=== PATIENT | male | born 1950 | race African-American/Black ===

== ENCOUNTER 2016-10-17 09:24 | Inpatient (IN) ==
--- NOTE | 2016-10-17 11:27 | History & Physical Report ---
Date of Encounter: 10/17/16 Time of Encounter: 11:27 24 Hour HP Update - Instructions Instructions: If the History and Physical is less than 30 days old and was completed prior to A.M. admission and or procedure and has NOT been updated on calendar day of procedure please complete this update prior to performing procedure. - Update Patient reports changes in Medical Condition: No Changes in examination, assessment, or condition: No Changes in Medication: No Preop tests/diagnostics Reviewed: Yes Surgery Remains Indicated: Yes Consent for Planned Operative Procedure(s) Verified: Yes - Pre-Operative Checklist Preoperative Checklist Indicated: No Prophylactic Antibiotic Ordered: Yes Is VTE Prophylaxis Indicated?: Yes
--- NOTE | 2016-10-17 11:30 | Discharge Summary ---
Date of Encounter: 10/21/16 Time of Encounter: 06:42 - Discharge Diagnosis (1) Arthritis of right hip Priority: Primary Status: Chronic (2) CHF (congestive heart failure) Priority: Secondary Status: Chronic Qualifiers: Congestive heart failure type: unspecified congestive heart failure type Congestive heart failure chronicity: chronic Qualified Code(s): I50.9 - Heart failure, unspecified (3) Hypertension Priority: Secondary Status: Chronic Qualifiers: Hypertension type: essential hypertension Qualified Code(s): I10 - Essential (primary) hypertension (4) COPD (chronic obstructive pulmonary disease) Priority: Secondary Status: Acute Qualifiers: COPD type: COPD with acute exacerbation Qualified Code(s): J44.1 - Chronic obstructive pulmonary disease with (acute) exacerbation (5) Hyperlipidemia Priority: Secondary Status: Chronic Qualifiers: Hyperlipidemia type: unspecified Qualified Code(s): E78.5 - Hyperlipidemia , unspecified (6) Coronary artery disease Priority: Secondary Status: Chronic Qualifiers: Coronary Disease-Associated Artery/Lesion type: unspecified vessel or lesion type [place] vs. transplanted heart: [place] heart Associated angina: angina presence unspecified Qualified Code(s): I25.10 - Atherosclerotic heart disease of [place] coronary artery without angina pectoris (7) Hypothyroidism Priority: Secondary Status: Chronic Qualifiers: Hypothyroidism type: unspecified Qualified Code(s): E03.9 - Hypothyroidism , unspecified (8) Acute blood loss anemia Priority: Primary Status: Acute (9) Status post total replacement of right hip Priority: Primary Status: Acute (10) Pneumonia Priority: Primary Status: Suspected Qualifiers: Pneumonia type: due to Pneumococcus Laterality: right Lung location: lower lobe of lung Qualified Code(s): J13 - Pneumonia due to Streptococcus pneumoniae (11) DVT prophylaxis Priority: Primary Status: Acute - Discharge Medications Prescriptions: Levofloxacin [Levaquin] 750 mg PO Q24H #10 tablet Home Medications: Albuterol Sulfate [Albuterol Inhaler] 2 puff IH Q4HR PRN 03/14/16 [History] Aspirin 81 mg PO DAILY 03/14/16 [History] EPINEPHrine [Epipen] 0.3 mg IM ONCE PRN 03/14/16 [History] Ergocalciferol (VITAMIN D2) [Vitamin D2] 50,000 unit PO MO 03/14/16 [History] Ipratropium/Albuterol Neb [Duoneb] 3 ml IH Q6HR PRN 03/14/16 [History] Levothyroxine [Synthroid] 50 mcg PO 0630 03/14/16 [History] Metoprolol [Lopressor] 50 mg PO BID 03/14/16 [History] Potassium Chloride [Klor-Con 10] 10 meq PO DAILY 03/14/16 [History] Roflumilast [Daliresp] 500 mcg PO DAILY 03/14/16 [History] Sertraline [Zoloft] 50 mg PO DAILY 03/14/16 [History] Simvastatin [Zocor] 40 mg PO HS 03/14/16 [History] amLODIPine [Norvasc] 5 mg PO DAILY 03/14/16 [History] Aspirin Enteric Coated [Aspirin EC] 325 mg PO BID #20 tablet. 10/17/16 [Rx] Omeprazole [PriLOSEC] 20 mg PO DAILY PRN 10/17/16 [History] OxyCODONE Immed Rel [Roxicodone 5 MG] 5 mg PO Q4HR PRN #24 tablet 10/17/16 [Rx] Tiotropium Br/Olodaterol HCl [Stiolto Respimat Inhal [place]] 2 puff IH DAILY [History] Levofloxacin [Levaquin] 750 mg PO Q24H #10 tablet 10/21/16 [Rx] Allergies/Adverse Reactions: Allergies naproxen [From Naprosyn] Allergy (Verified 10/17/16 13:16) See Comments swelling and breathing difficulty Penicillins [PCN] Allergy (Verified 10/17/16 13:16) See Comments swelling Trimethobenzamide Allergy (Verified 10/17/16 13:16) See Comments swelling atorvastatin [From Lipitor] Adverse Reaction (Verified 10/17/16 13:16) See Comments elevated liver enzymes Primary care physician: Romel Fowler MD - Patient Status Disposition: Home Health Service Condition: Good Functional capacity at discharge: uses cane/walker Overall status at discharge: patient is progressing back to baseline - Discharge Instructions Follow Up With: Romel Fowler MD [Primary Care Provider] - - Hospital Course Hospital course: Mr. Billings is a 66 year old male Status post right total hip replacement.The patient required 2 units of blood for acute blood loss anemia, patient developed pneumonia was treated by the medical team with IV antibiotics. Patient received physical therapy. Patient discharged stable condition. Discharged on oral levofloxacin for pneumonia and aspirin for DVT prophylaxis. will follow-up in 2 days. - Time Spent with Patient Total time spent providing and/or coordinating discharge services:
--- NOTE | 2016-10-17 12:59 | Anesthesia Evaluation PreOp ---
Date of Encounter: 10/17/16 Time of Encounter: 13:47 - Past History Planned Operation: Right total Hip Cardiac History: CHF, HTN, Hyperlipidemia, Cardiac Surgery (CABG x 5) Pulmonary History: COPD (Severe, 2 LO2 nc) COAL TRAMMER History: Other (Depression) Other Medical History: Thyroid (Hyperthytroid), Other (DDD) Anesthesia History: No Prior Anesthetic Complications, Past Anesthesia ( Laminectomy, Right Shoulder, Hiatal Hernia, Right pneumonectomy, CTR, Inguinal Hernia, Pain pump) Alcohol Use: none Drug use: none Medications and Allergies Albuterol Sulfate [Albuterol Inhaler] 2 puff IH Q4HR PRN 03/14/16 [History] Aspirin 81 mg PO DAILY 03/14/16 [History] EPINEPHrine [Epipen] 0.3 mg IM ONCE PRN 03/14/16 [History] Ergocalciferol (VITAMIN D2) [Vitamin D2] 50,000 unit PO MO 03/14/16 [History] Ipratropium/Albuterol Neb [Duoneb] 3 ml IH Q6HR PRN 03/14/16 [History] Levothyroxine [Synthroid] 50 mcg PO 0630 03/14/16 [History] Metoprolol [Lopressor] 50 mg PO BID 03/14/16 [History] Oxycodone HCl/Acetaminophen [Percocet 7.5-325 mg Tablet] 1 each PO Q6H PRN 03/14 [History] Potassium Chloride [Klor-Con 10] 10 meq PO DAILY 03/14/16 [History] Roflumilast [Daliresp] 500 mcg PO DAILY 03/14/16 [History] Sertraline [Zoloft] 50 mg PO DAILY 03/14/16 [History] Simvastatin [Zocor] 40 mg PO HS 03/14/16 [History] amLODIPine [Norvasc] 5 mg PO DAILY 03/14/16 [History] Aspirin Enteric Coated [Aspirin EC] 325 mg PO BID #20 tablet. 10/17/16 [Rx] Omeprazole [PriLOSEC] 20 mg PO DAILY PRN 10/17/16 [History] OxyCODONE Immed Rel [Roxicodone 5 MG] 5 mg PO Q4HR PRN #24 tablet 10/17/16 [Rx] Tiotropium Br/Olodaterol HCl [Stiolto Respimat Inhal [place]] 2 puff IH DAILY [History] Allergies naproxen [From Naprosyn] Allergy (Verified 10/17/16 13:16) See Comments swelling and breathing difficulty Penicillins [PCN] Allergy (Verified 10/17/16 13:16) See Comments swelling Trimethobenzamide Allergy (Verified 10/17/16 13:16) See Comments swelling atorvastatin [From Lipitor] Adverse Reaction (Verified 10/17/16 13:16) See Comments elevated liver enzymes - Meds/Allergy Pre-op Review Medications Reviewed: Yes Allergies Reviewed: Yes Beta Blockers on Current Med List: Yes If Beta Blockers taken, Date/Time (Last Dose taken): 10:00 10/17/2016 Anesthesia Results - Labs Laboratory Tests 01/18/16 10/02/16 10/02/16 15:57 09:15 09:15 WBC 10.6 Hgb 13.1 Hct 42.4 Plt Count 208 INR 1.2 Sodium Potassium Chloride Carbon Dioxide BUN Creatinine POC Creatinine 0.70 10/02/16 10/02/16 09:15 09:15 WBC Hgb Hct Plt Count INR Sodium 138 Potassium 3.8 Chloride 103 Carbon Dioxide 27 BUN 10 Creatinine 0.73 POC Creatinine 08/26/13 Stress EF-64% no ishemia Echo 04/17/12 EF 63% - Imaging EKG: image reviewed (ADY SMITH) Anesthesia Exam O2 Sat Height 1.7 m Height 1.7 m Weight 75.296 kg Weight 75.296 kg O2 Sat by Pulse Oximetry 91 Vital Signs Temp Pulse Resp BP Pulse Ox 98.1 F 79 18 131/83 91 10/17/16 12:57 10/17/16 12:57 10/17/16 12:57 10/17/16 12:57 10/17/16 12:57 Height: 5'7'' Weight: 166# NPO (# of Hours): > 8 hrs Pain Scale: 0 Pain Scale Used: Numeric (1 - 10) - HEENT Pupil (Motor): Pupils equal, EOMI Mallampati: II Teeth: Edentulous Oral Opening: Greater than 3 - COAL TRAMMER LOC: Oriented COAL TRAMMER Motor: Normal RUE, Normal LUE, Normal RLE, Normal LLE, Normal Face COAL TRAMMER Sensory: Normal: RUE, LUE, RLE, LLE, Face - Cardiac Rhythm: Regular Murmur: None JVD: No Carotid Bruit: No - Pulmonary Breath Sounds: bilateral Clear Respiratory Effort: Symmetrical Anesthesia Assess/Plan ASA Score: 3 Modified Michael Scale for Level of Consciousness: Asleep with no response Autologous Blood: Yes Monitoring Plan: Standard Monitors Recovery Plan: PACU
[2016-10-17] MEDS ORDERED: Clindamycin 900 MG/50 ML 900 MG/50 ML IV.SOLN IVPB ONE (13:47)
[2016-10-17] MEDS ORDERED: Albuterol 2.5 MG/3 ML NEBULIZER IH ONE ×3 (13:47→16:23)
[2016-10-17] MEDS ORDERED: Lidocaine -MPF 1% 2 ML VIAL ID ONE (13:47)
[2016-10-17] MEDS ORDERED: Ringers Solution, Lactated 1,000 ML IVC SCH (14:00)
[2016-10-17] MEDS ORDERED: Ketorolac 30 MG/ML VIAL ONE ×2 (14:31→17:21)
[2016-10-17] MEDS ORDERED: *HR* FentaNYL (PF) 100 MCG/2 ML VIAL ONE ×2 (14:31→15:25)
[2016-10-17] MEDS ORDERED: *HR* Propofol 200 MG/20 ML VIAL IVP ONE (14:31)
[2016-10-17] MEDS ORDERED: *HR* Rocuronium Bromide 50 MG/5 ML VIAL ONE (14:31)
[2016-10-17] MEDS ORDERED: Lidocaine -MPF 2% 2 ML VIAL ONE (14:31)
[2016-10-17] MEDS ORDERED: Ondansetron 4 MG/2 ML VIAL ONE (14:31)
[2016-10-17] MEDS ORDERED: *HR* Midazolam HCl 2 MG/2 ML VIAL ONE (14:31)
[2016-10-17] MEDS ORDERED: Lidocaine -MPF 4% 5 ML AMPUL ONE (14:50)
[2016-10-17] MEDS ORDERED: Ipratropium Neb 0.5 MG NEBULIZER IH ONE (14:58)
[2016-10-17] MEDS ORDERED: Dexamethasone 4 MG/ML VIAL IVP ONE (14:58)
[2016-10-17] MEDS ORDERED: Ondansetron 4 MG/2 ML VIAL IVP ONE (14:58)
[2016-10-17] MEDS ORDERED: Bupivacaine/Clonidine Syringe 1 EACH SYRINGE ONE (15:02)
[2016-10-17] MEDS ORDERED: Neostigmine Methylsulfate 3 MG/3 ML SYRINGE ONE (15:33)
--- NOTE | 2016-10-17 15:47 | Orthopedic Operative Note ---
Date of procedure: 10/17/16 Pre-op diagnosis: right hip arthritis Post-op diagnosis: same Procedure: Procedure: Right Total Hip Replacment Estimated blood loss: 200 cc Hardware: Metal and polyethylene replacement. Biomet DM Cup: 54 G7 fin cup Femoral size 14 echo full profile lateralized stem Head: 0 head with Amberly Procedural Notes: Grade 4 arthritic changes femoral head acetabular socket. Operative procedure: The patient was brought to the operating room and placed on the operating room table. After general anesthesia was administered the patient was placed in the lateral decubitus position with the operative leg up. All pressure points were padded appropriately and the head was stabilized in the neutral position. The operative extremity was prepped and draped in the sterile surgical fashion patient received IV antibiotic prior to skin incision. A standard posterior approach is made to the operative hip, the incision was made through the skin and subcutaneous tissue hemostasis was obtained with Bovie cautery. Using careful sharp dissection the fascia was identified and incised exposing the external rotators. The external rotators were released off the greater trochanter and tagged with #2 FiberWire suture. The capsule was T'd open and the hip was brought into internal rotation. Patient noted to have grade 4 arthritic changes femoral head. The femoral neck cut was made at the appropriate level. An anterior capsulotomy was performed for the anterior retractor. Soft tissues removed from the acetabulum. Patient noted to have grade 4 arthritic changes acetabulum. Acetabulum was first reamed medially, and then reamed in 15 degrees of anteversion and 45 degrees off the horizontal. It was reamed up to the appropriate size with the 54 The appropriate-sized 54 acetabular cup was impacted in place in 15 degrees of anteversion and 45 degrees off the horizontal. This had good fit and fixation. The hip was brought back in to internal rotation and prepared with the mattress and boxsprings supervisor followed by the canal finder followed by broaching process in 20 degrees anteversion. It was broached up to the appropriate size 14. The femoral implant was impacted in place in 20 degrees of anteversion. Trial reduction found the hip to be stable with 0 head and Amberly. The trials were removed and the real implants were impacted in place. The hip was reduced, patient had apparent equal leg lengths. The hip had excellent stability with forward flexion to 90 degrees adduction of 30 degrees and internal rotation of 60 degrees. The hip had no shuck. The hips after 2 minutes with a Betadine saline solution. It was irrigated out with 2 L of pulse irrigation. Fascia was closed with a running #2 PDS suture. The deep tissue was irrigated and closed deep with #1 PDS suture superficially with 0 PDS suture and skin was closed with Dermabond and skin donna. The patient was placed in a sterile dressing and abduction pillow. The patient was extubated and transferred to the recovery room in stable condition. Anesthesia: GETA Surgeon: Jerrell Carr Condition: stable Disposition: PACU
--- NOTE | 2016-10-17 16:20 | Anesthesia Procedures ---
Date of Encounter: 10/17/16 Time of Encounter: 13:50 Procedures: Anesthesia - Nerve Block Procedure Date: 10/17/16 Time: 13:50 Allergies/Adv Reactions: Trimethobanzamide, PCN, Naproxen, Atorvastatn Pre-op Diagnosis: Right Hip Arthritis Surgical Procedure: Total Right Hip Arthroplasty Checklist: Correct Patient Identifier, Correct procedure, History checked Correct side: Right Blood Thinner: No Monitor Applied: EKG, BP, Pulse Oximetry, Other (etco2) Supplemental Oxygen via Nasal Cannula (L/min): 2 Indication: Post Op Analgesia Pre-op Neuro Deficits: No Block Type: Other (Fascia [place]) Catheter placed: No Sterile Technique: Yes Ultrasound used: Yes Anatomy identified: Yes Visual spread of Local: Yes Neuro Stimulation: No Blood on Needle Aspiration: No Smooth Injection of Local: Yes Pain with Injection of Local: No Prep: Chlorhexadine Needle: 22 x 50 mm Stimuplex Local: 0.25% Bupivicaine w/Clonidine 20 mcg/cc Volume (cc): 60 Complications: None/effective block Vitals: vss
[2016-10-17] MEDS: *HR* HYDROmorphone (PF) 1 MG/ML SYRINGE IVP PRN ×4 (16:26→16:55)
[2016-10-17] MEDS: *HR* Labetalol 20 MG/4 ML SYRINGE IVP PRN ×2 (16:46→16:53)
[2016-10-17 16:52] LABS: Hematocrit 40.2 % (37.5-50.1); Hemoglobin 12.2 g/dL (12.9-16.9)
[2016-10-17] MEDS ORDERED: Acetaminophen IV 1,000 MG/100 ML INFUS..BTL IVPB ONE (17:02)
[2016-10-17] MEDS ORDERED: Acetaminophen IV 1,000 MG/100 ML INFUS..BTL ONE (17:06)
--- NOTE | 2016-10-17 17:29 | Anesthesia Evaluation Post Op ---
Date of Encounter: 10/17/16 Time of Encounter: 17:24 - Vital Signs Vital Signs: vss - Lungs Lungs: Clear Ascult./Percussion - Airway Airway: Non-obstructed - Cardiovascular Baseline Rhythm - Mental Status Mental Status: Asleep with brisk response to light stimulation - Pain Pain Scale used: Yanna (Faces) (no apparent distress) - Nausea Vomiting Nausea Vomiting: Not Present - Discharge PostOp Status: Transfer Patient to floor
[2016-10-17] MEDS ORDERED: Temazepam 15 MG CAPSULE PO PRN (17:34)
[2016-10-17] MEDS ORDERED: Sennosides 8.6 MG TABLET PO PRN (17:34)
[2016-10-17] MEDS ORDERED: MOM Conc 10 ML UD.LIQ PO PRN (17:34)
[2016-10-17] MEDS ORDERED: Naloxone 0.4 MG/ML INJ IVP PRN (17:34)
[2016-10-17] MEDS ORDERED: Ondansetron 4 MG/2 ML VIAL IVP PRN (17:34)
[2016-10-17] MEDS ORDERED: *HR* EPINEPHrine 0.3 MG/0.3 ML (PEN) IM PRN (17:34)
[2016-10-17] MEDS ORDERED: *HR* OxyCODONE Immed Rel 5 MG TABLET PO PRN (17:34)
[2016-10-17] MEDS ORDERED: *HR* Enoxaparin 30 MG/0.3 ML SYRINGE SQ SCH (18:00)
[2016-10-17] MEDS: Ipratropium/Albuterol Neb 3 ML IH SCH ×2 (18:10→22:23)
[2016-10-17] MEDS: Ascorbic Acid 500 MG TABLET PO SCH (18:14)
[2016-10-17] MEDS: *HR* Enoxaparin 30 MG/0.3 ML SYRINGE SQ SCH (18:17)
[2016-10-17] MEDS: *HR* OxyCODONE Immed Rel 5 MG TABLET PO PRN ×2 (18:17→22:40)
[2016-10-17] MEDS: Ringers Solution, Lactated 1,000 ML IVC SCH (18:18)
[2016-10-17] MEDS: Clindamycin 900 MG/50 ML 900 MG/50 ML IV.SOLN IVPB SCH (22:41)
[2016-10-18 01:14] LABS: Hematocrit 32.3 % (37.5-50.1)
[2016-10-18 01:28] LABS: BUN/Creatinine Ratio 15 (6-26); Blood Urea Nitrogen 11 mg/dL (8-26); Calcium 8.6 mg/dL (8.6-10.8); Carbon Dioxide 26 mEq/L (19-29); Chloride 104 mEq/L (98-109); Glucose 182 mg/dL (70-99); Osmolality,Calculated 286 (280-300); Sodium 136 mEq/L (136-145); eGFR For African Americans > 60 (> 60); eGFR For Non-African Americans > 60 (> 60)
[2016-10-18] MEDS: Ipratropium/Albuterol Neb 3 ML IH SCH ×4 (04:10→22:18)
[2016-10-18] MEDS: *HR* OxyCODONE Immed Rel 5 MG TABLET PO PRN ×4 (04:17→21:59)
[2016-10-18] MEDS: *HR* Enoxaparin 30 MG/0.3 ML SYRINGE SQ SCH ×2 (06:02→17:40)
[2016-10-18] MEDS: Clindamycin 900 MG/50 ML 900 MG/50 ML IV.SOLN IVPB SCH (06:03)
--- NOTE | 2016-10-18 06:40 | Orthopedics Progress Note ---
Date of Encounter: 10/18/16 Time of Encounter: 06:40 - Assessment and Plan (1) Arthritis of right hip Current Visit: Yes Status: Chronic (2) CHF (congestive heart failure) Current Visit: Yes Status: Chronic Qualifiers: Congestive heart failure type: combined Congestive heart failure chronicity : unspecified congestive heart failure chronicity Qualified Code(s): I50.40 - Unspecified combined systolic (congestive) and diastolic (congestive) heart failure (3) Hypertension Current Visit: Yes Status: Chronic Qualifiers: Hypertension type: unspecified Qualified Code(s): I10 - Essential (primary ) hypertension (4) COPD (chronic obstructive pulmonary disease) Current Visit: Yes Status: Chronic Qualifiers: COPD type: unspecified COPD Qualified Code(s): J44.9 - Chronic obstructive pulmonary disease, unspecified (5) Hyperlipidemia Current Visit: Yes Status: Chronic Qualifiers: Hyperlipidemia type: unspecified Qualified Code(s): E78.5 - Hyperlipidemia , unspecified (6) Coronary artery disease Current Visit: Yes Status: Chronic Qualifiers: Coronary Disease-Associated Artery/Lesion type: unspecified vessel or lesion type [place] vs. transplanted heart: [place] heart Associated angina: angina presence unspecified Qualified Code(s): I25.10 - Atherosclerotic heart disease of [place] coronary artery without angina pectoris (7) Hypothyroidism Current Visit: Yes Status: Chronic Qualifiers: Hypothyroidism type: unspecified Qualified Code(s): E03.9 - Hypothyroidism , unspecified Subjective Interval history: Patient was seen this morning doing well without complaints. Afebrile vital signs stable. Operative extremity: Neurovascularly intact Dressing clean dry and intact Calves nontender Assessment and plan: Continue with postoperative care Hematocrit 32 Objective Vital signs: Vital Signs Temp Pulse Resp BP Pulse Ox 10/18/16 05:50 98.4 F 95 15 110/62 93 10/18/16 05:34 93 10/18/16 04:11 16 94 10/18/16 01:06 97.9 F 96 15 97/60 96 10/17/16 22:23 16 94 10/17/16 19:45 97.8 F 86 15 120/80 93 10/17/16 18:48 98.0 F 87 15 126/79 90 10/17/16 18:12 97.9 F 80 15 125/79 95 10/17/16 17:27 98.1 F 84 16 122/75 94 10/17/16 17:17 79 16 108/90 95 10/17/16 17:07 98.1 F 76 17 131/89 100 10/17/16 16:57 77 16 128/90 92 10/17/16 16:47 83 14 151/95 95 10/17/16 16:37 98.3 F 88 16 155/101 95 10/17/16 16:27 89 19 151/100 100 10/17/16 16:17 79 18 132/93 100 10/17/16 16:07 97.0 F L 81 18 137/86 100 10/17/16 14:06 18 131/83 91 10/17/16 12:57 98.1 F 79 18 131/83 91 Intake and Output 10/17/16 10/17/16 10/18/16 15:59 23:59 07:59 Intake Total 100 / 100 250 / 250 Output Total 200 / 200 375 / 375 500 / 500 Balance -100 / -100 -125 / -125 -500 / -500 Intake: IV Fluids 100 / 100 50 / 50 Cleocin Premix 900 MG/50 100 / 100 50 / 50 ML 900 mg In 50 ml @ 50 mls/hr IVPB Q8H [facility] Rx#: [id number] Oral 200 / 200 Output: Urine 375 / 375 500 / 500 Estimated Blood Loss 200 / 200 Other: Weight 75.296 kg 78.47 kg Patient Weight 10/18/16 23:59 Weight 78.47 kg - Labs CBC & BMP: 10/18/16 00:58 10/18/16 00:58 Labs: Abnormal lab results Hgb 10.0 g/dL (12.9-16.9) L D 10/18/16 00:58 Hct 32.3 % (37.5-50.1) L 10/18/16 00:58 Glucose 182 mg/dL (70-99) H 10/18/16 00:58 - VTE Documentation of Mechanical Device: Venous foot pump, device Consult Discharge Plan - Plan Referrals: Romel Fowler MD [Primary Care Provider] -
[2016-10-18] MEDS: Aspirin 81 MG TAB.CHEW PO SCH (10:06)
[2016-10-18] MEDS: Roflumilast [Daliresp] 500 MCG PO SCH (10:06)
[2016-10-18] MEDS: Tiotropium Br/Olodaterol Hcl [Stiolto Respimat Inhal IH SCH (10:06)
[2016-10-18] MEDS: Multivit/Ca/Min/Fe/FA 1 TAB TABLET PO SCH (10:06)
[2016-10-18] MEDS: amLODIPine 5 MG TABLET PO SCH (10:06)
[2016-10-18] MEDS: Ascorbic Acid 500 MG TABLET PO SCH ×2 (10:06→17:42)
--- NOTE | 2016-10-18 12:24 | Event Note ---
Date of Encounter: 10/18/16 Time of Encounter: 12:14 At bedside with patient. Therapy recommending inpatient/swing bed. Patient states he is opposed to inpatient rehab, educated patient on importance of recovery process and importance of rehab. Educated on use of abductor pillow. Patient asking about right foot turning in amd potentially having a leg length discrepancy- requested patient continue to work with therapy and wait for swelling to go down and anesthesia to fully wear off. Patient verified understanding. Will need continuity for ECF and home health.
--- NOTE | 2016-10-18 18:27 | Physician Discharge Referral ---
ExtendedCare Referral Info Transfer To: [facility] Provider in Charge: Dr. Jerrell Carr Institutional Level of Care: Skilled - Diagnosis (1) Status post total replacement of right hip Priority: Primary Status: Acute (2) Arthritis of right hip Priority: Secondary Status: Chronic (3) Hypertension Priority: Secondary Status: Chronic (4) COPD (chronic obstructive pulmonary disease) Priority: Secondary Status: Chronic (5) Hyperlipidemia Priority: Secondary Status: Chronic (6) Coronary artery disease Priority: Secondary Status: Chronic (7) Hypothyroidism Priority: Secondary Status: Chronic Expected Duration of Placement: <30 days Prognosis: Good Aware of Diagnosis: Patient Aware of Prognosis: Patient - Transfer Medications Home Medications: Albuterol Sulfate [Albuterol Inhaler] 2 puff IH Q4HR PRN 03/14/16 [History] Aspirin 81 mg PO DAILY 03/14/16 [History] EPINEPHrine [Epipen] 0.3 mg IM ONCE PRN 03/14/16 [History] Ergocalciferol (VITAMIN D2) [Vitamin D2] 50,000 unit PO MO 03/14/16 [History] Ipratropium/Albuterol Neb [Duoneb] 3 ml IH Q6HR PRN 03/14/16 [History] Levothyroxine [Synthroid] 50 mcg PO 0630 03/14/16 [History] Metoprolol [Lopressor] 50 mg PO BID 03/14/16 [History] Potassium Chloride [Klor-Con 10] 10 meq PO DAILY 03/14/16 [History] Roflumilast [Daliresp] 500 mcg PO DAILY 03/14/16 [History] Sertraline [Zoloft] 50 mg PO DAILY 03/14/16 [History] Simvastatin [Zocor] 40 mg PO HS 03/14/16 [History] amLODIPine [Norvasc] 5 mg PO DAILY 03/14/16 [History] Aspirin Enteric Coated [Aspirin EC] 325 mg PO BID #20 tablet. 10/17/16 [Rx] Omeprazole [PriLOSEC] 20 mg PO DAILY PRN 10/17/16 [History] OxyCODONE Immed Rel [Roxicodone 5 MG] 5 mg PO Q4HR PRN #24 tablet 10/17/16 [Rx] Tiotropium Br/Olodaterol HCl [Stiolto Respimat Inhal [place]] 2 puff IH DAILY [History] Allergies/Adverse Reactions: Allergies naproxen [From Naprosyn] Allergy (Verified 10/17/16 13:16) See Comments swelling and breathing difficulty Penicillins [PCN] Allergy (Verified 10/17/16 13:16) See Comments swelling Trimethobenzamide Allergy (Verified 10/17/16 13:16) See Comments swelling atorvastatin [From Lipitor] Adverse Reaction (Verified 10/17/16 13:16) See Comments elevated liver enzymes - Respiratory Orders Smoking Cessation: Smoking cessation has been advised. For more information, call the [place] Tobacco Quit Line at 9-178-LWDJ-NOW. - Ancillary Orders May use pressure relief devices daily prn, May go on IVON w/family/respon alliance party w /meds at nurse discretion PRN, May consult with Dentist, Senior Ruby Developer, Vascular Specialists PRN - Mobility Orders Chair, Ambulate (walker) - Rehabiliation Orders Rehab Potential: Good Rehab Orders: Evaluation for Physical Therapy, Evaluation for Occupational Therapy Other: Total Hip replacement Precautions x 6 weeks Apply cold therapy 3-6x/day for 20 minutes at a time. Encourage ambulation throughout the day and incentive spirometer 10x/hour. Elevate affected extremity as tolerated. Brace: Wear hip abduction at night - Treatments Skin tear care topically daily PRN per policy List/Other: Opsite placed. Keep dressing intact until first follow up appointment. If > 50% saturated, notify office, remove dressing and place appropriate dressing back in place. Dressing is water resistant, not water-proof. OK to shower, but do not get dressing wet. - Diet Orders Regular CERTIFICATION: I certify that the transfer of the above named patient to an Extended Care Facility is necessary for the continuing treatment of the diagnosis listed. The above information is true and accurate reflection of patient's current condition. Confidential - Redisclosure prohibited without a patient's written consent.
[2016-10-18] MEDS: Ringers Solution, Lactated 1,000 ML IVC SCH ×2 (19:01→19:07)
[2016-10-18] MEDS: *HR* HYDROmorphone (PF) 1 MG/ML SYRINGE IVP PRN (23:22)
[2016-10-19] MEDS: *HR* OxyCODONE Immed Rel 5 MG TABLET PO PRN ×4 (01:59→19:14)
[2016-10-19] MEDS: Ipratropium/Albuterol Neb 3 ML IH SCH ×4 (03:49→21:30)
[2016-10-19] MEDS: *HR* Enoxaparin 30 MG/0.3 ML SYRINGE SQ SCH ×2 (05:20→17:59)
[2016-10-19] MEDS: *HR* HYDROmorphone (PF) 1 MG/ML SYRINGE IVP PRN ×3 (05:21→22:01)
[2016-10-19 06:14] LABS: Hematocrit 25.4 % (37.5-50.1)
[2016-10-19 06:18] LABS: BUN/Creatinine Ratio 15 (6-26); Blood Urea Nitrogen 10 mg/dL (8-26); Calcium 8.1 mg/dL (8.6-10.8); Carbon Dioxide 30 mEq/L (19-29); Chloride 101 mEq/L (98-109); Glucose 142 mg/dL (70-99); Osmolality,Calculated 277 (280-300); Sodium 133 mEq/L (136-145); eGFR For African Americans > 60 (> 60); eGFR For Non-African Americans > 60 (> 60)
[2016-10-19 06:21] LABS: Hemoglobin 7.8 g/dL (12.9-16.9)
--- NOTE | 2016-10-19 07:45 | Orthopedics Progress Note ---
Date of Encounter: 10/19/16 Time of Encounter: 07:45 - Assessment and Plan (1) Arthritis of right hip Current Visit: Yes Status: Chronic (2) CHF (congestive heart failure) Current Visit: Yes Status: Chronic Qualifiers: Congestive heart failure type: combined Congestive heart failure chronicity : unspecified congestive heart failure chronicity Qualified Code(s): I50.40 - Unspecified combined systolic (congestive) and diastolic (congestive) heart failure (3) Hypertension Current Visit: Yes Status: Chronic Qualifiers: Hypertension type: unspecified Qualified Code(s): I10 - Essential (primary ) hypertension (4) COPD (chronic obstructive pulmonary disease) Current Visit: Yes Status: Chronic Qualifiers: COPD type: unspecified COPD Qualified Code(s): J44.9 - Chronic obstructive pulmonary disease, unspecified (5) Hyperlipidemia Current Visit: Yes Status: Chronic Qualifiers: Hyperlipidemia type: unspecified Qualified Code(s): E78.5 - Hyperlipidemia , unspecified (6) Coronary artery disease Current Visit: Yes Status: Chronic Qualifiers: Coronary Disease-Associated Artery/Lesion type: unspecified vessel or lesion type [place] vs. transplanted heart: [place] heart Associated angina: angina presence unspecified Qualified Code(s): I25.10 - Atherosclerotic heart disease of [place] coronary artery without angina pectoris (7) Hypothyroidism Current Visit: Yes Status: Chronic Qualifiers: Hypothyroidism type: unspecified Qualified Code(s): E03.9 - Hypothyroidism , unspecified (8) Acute blood loss anemia Current Visit: Yes Status: Acute (9) Status post total replacement of right hip Current Visit: Yes Status: Acute Subjective Interval history: Patient was seen this morning doing well without complaints. Afebrile vital signs stable. Operative extremity: Neurovascularly intact Dressing clean dry and intact Calves nontender Assessment and plan: Continue with postoperative care Hemoglobin 7.8 transfuse 2 units packed red blood cells Objective Vital signs: Vital Signs Temp Pulse Resp BP Pulse Ox 10/19/16 06:35 98.5 F 101 16 114/68 95 10/19/16 01:29 98.3 F 110 18 110/70 90 10/18/16 22:34 110 17 109/66 98 10/18/16 22:18 17 98 10/18/16 22:00 96 10/18/16 21:44 98.9 F 98 20 89/56 96 10/18/16 16:15 16 100 10/18/16 15:22 98.2 F 87 16 93/57 95 10/18/16 11:02 16 97 10/18/16 10:45 97.6 F 85 16 106/66 96 Intake and Output 10/18/16 10/18/16 10/19/16 15:59 23:59 07:59 Intake Total 360 / 360 2200 / 2200 680 / 680 Output Total 225 / 225 300 / 300 Balance 135 / 135 2200 / 2200 380 / 380 Intake: IV Fluids 1999 Lactated Ringers 1,000 ML 1999 @ 75 mls/hr IVC .[id number] [facility] Rx#:[id number] Oral 360 / 360 200 / 200 680 / 680 Output: Urine 225 / 225 300 / 300 Other: Meal Lunch Dinner Percent of Meal Consumed 100% 90% - Labs CBC & BMP: 10/19/16 06:00 10/19/16 06:00 Labs: Abnormal lab results Hgb 7.8 g/dL (12.9-16.9) L D 10/19/16 06:00 Hct 25.4 % (37.5-50.1) L 10/19/16 06:00 Sodium 133 mEq/L (136-145) L 10/19/16 06:00 Carbon Dioxide 30 mEq/L (19-29) H 10/19/16 06:00 Creatinine 0.65 mg/dL (0.72-1.25) L 10/19/16 06:00 Glucose 142 mg/dL (70-99) H 10/19/16 06:00 Calculated Osmolality 277 (280-300) L 10/19/16 06:00 Calcium 8.1 mg/dL (8.6-10.8) L 10/19/16 06:00 - VTE Documentation of Mechanical Device: Venous foot pump, device Consult Discharge Plan - Plan Referrals: Romel Fowler MD [Primary Care Provider] -
[2016-10-19] MEDS ORDERED: Furosemide 20 MG/2 ML VIAL IVP PRN (07:46)
[2016-10-19] MEDS: Multivit/Ca/Min/Fe/FA 1 TAB TABLET PO SCH (09:11)
[2016-10-19] MEDS: Ascorbic Acid 500 MG TABLET PO SCH ×2 (09:12→17:59)
[2016-10-19] MEDS: Tiotropium Br/Olodaterol Hcl [Stiolto Respimat Inhal IH SCH (09:12)
[2016-10-19] MEDS: Aspirin 81 MG TAB.CHEW PO SCH (09:12)
[2016-10-19] MEDS: amLODIPine 5 MG TABLET PO SCH (09:12)
[2016-10-19] MEDS: Roflumilast [Daliresp] 500 MCG PO SCH (09:12)
[2016-10-19] MEDS ORDERED: 0.9 % Sodium Chloride 250 ML ONE ×2 (10:53→16:08)
[2016-10-20] MEDS: *HR* OxyCODONE Immed Rel 5 MG TABLET PO PRN ×5 (00:39→21:49)
--- NOTE | 2016-10-20 02:02 | Internal Medicine Consult Note ---
<Jaxon Ewing - Last Filed: 10/20/16 02:57> Date of Encounter: 10/20/16 Time of Encounter: 01:59 - Assessment and Plan (1) Pneumonia Current Visit: Yes Status: Acute Assessment and plan: Possibly hospital acquired as he developed fever and increased cough yesterday Will start on Levaquin monotherapy, but low threshold of adding Vancomycin depending on cultures and white count results Blood cultures collected, await results and sensitivities Qualifiers: Pneumonia type: due to unspecified organism Laterality: right Lung location: lower lobe of lung Qualified Code(s): J18.1 - Lobar pneumonia, unspecified organism (2) Anemia Current Visit: Yes Status: Acute Assessment and plan: Likely related to recent surgery and hemodilution as patient has been net positive almost 3 L since admission No obvious signs of blood loss upon examination and questioning; no evidence of hematoma around surgical site He had two orders of pRBCs transfused and we will repeat CBC during AM lab Qualifiers: Qualified Code(s): D64.9 - Anemia, unspecified (3) Status post total replacement of right hip Current Visit: Yes Status: Acute Assessment and plan: Patient is POD #3 right total hip replacement by Dr. Carr Management per primary team (4) COPD (chronic obstructive pulmonary disease) Current Visit: Yes Status: Chronic Assessment and plan: Patient currently on home dose of oxygen and saturating well in mid 90's Continue with supplemental oxygen, breathing treatments, and Robitussin for expectorant Qualifiers: COPD type: unspecified COPD Qualified Code(s): J44.9 - Chronic obstructive pulmonary disease, unspecified (5) Coronary artery disease Current Visit: Yes Status: Chronic Assessment and plan: No chest pain at this time Continue patient on ASA, Zocor, and BB Qualifiers: Coronary Disease-Associated Artery/Lesion type: unspecified vessel or lesion type [place] vs. transplanted heart: [place] heart Associated angina: angina presence unspecified Qualified Code(s): I25.10 - Atherosclerotic heart disease of [place] coronary artery without angina pectoris (6) Hypertension Current Visit: Yes Status: Chronic Assessment and plan: Blood pressure have been stable during entirety of stay thus far Continue with home anti-hypertensives Qualifiers: Hypertension type: unspecified Qualified Code(s): I10 - Essential (primary ) hypertension (7) DVT prophylaxis Current Visit: Yes Status: Acute Assessment and plan: [facility] Internal Medicine - CN: HPI - Data of Consult Patient: new to practice Consult date: 10/20/16 Requesting Physician: Jerrell Carr MD - Consult Narrative Reason for consult: pneumonia History of present illness: Mr. Billings is a 66 year old male who underwent right total hip replacement by Dr. Carr on October 17. Within the last 24 hours patient had increased cough and nurse states that he appeared to be short of breath more than baseline. Chest x -ray was performed and showed possible right sided consolidation. During this time he also had a fever recorded at 101 most recently. Patient states that his right hip is still quite tender, but comes and goes and is about the same as right after surgery. He denies any increased swelling or redness in his extremities. Patient does have a history of COPD and has productive sputum usually in the mornings, and is on 2.5 L of oxygen as needed throughout the day. He denies any chest pain, nausea, vomiting, diarrhea, hematuria, hematochezia, melena. He has never had any problems with bleeding or clotting in the past, but has been hospitalized with pneumonia on several occasions. Past Med Surg Social Fam HX - Past Medical History Medical history: arthritis, CHF, COPD, hyperlipidemia, hypertension, myocardial infarction, thyroid disease Psychiatric history: depression - Past Surgical History Surgical History: cataract, coronary bypass (CABG), herniorrhaphy - Social History Smoking Status: Former smoker Smokeless Tobacco Status: No Alcohol use: none Drug use: none - Family History Mother Hx Family Cardiac Disorders: Yes (ND) - Constitutional Constitutional: fever(s), no falls - Cardiovascular Cardiovascular ROS IM: dyspnea, dyspnea on exertion, no chest pain, no edema, no irregular heart rhythm, no syncope - Respiratory Respiratory: cough, excessive phlegm production, change in phlegm color, no hemoptysis, no wheezing - Gastrointestinal Gastrointestinal: no abdominal pain, no diarrhea, no hematemesis, no hematochezia, no melena, no nausea, no vomiting - Genitourinary Genitourinary ROS male: no dysuria, no hematuria, no urinary incontinence - Musculoskeletal Musculoskeletal ROS IM: arthralgias, no numbness, no tingling - Integumentary Integumentary IM: no erythema, no new lesions - Neurological Neurological ROS: no frequent falls, no headache(s), no weakness Internal Medicine - CN: Meds Albuterol Sulfate [Albuterol Inhaler] 2 puff IH Q4HR PRN 03/14/16 [History] Aspirin 81 mg PO DAILY 03/14/16 [History] EPINEPHrine [Epipen] 0.3 mg IM ONCE PRN 03/14/16 [History] Ergocalciferol (VITAMIN D2) [Vitamin D2] 50,000 unit PO MO 03/14/16 [History] Ipratropium/Albuterol Neb [Duoneb] 3 ml IH Q6HR PRN 03/14/16 [History] Levothyroxine [Synthroid] 50 mcg PO 0630 03/14/16 [History] Metoprolol [Lopressor] 50 mg PO BID 03/14/16 [History] Potassium Chloride [Klor-Con 10] 10 meq PO DAILY 03/14/16 [History] Roflumilast [Daliresp] 500 mcg PO DAILY 03/14/16 [History] Sertraline [Zoloft] 50 mg PO DAILY 03/14/16 [History] Simvastatin [Zocor] 40 mg PO HS 03/14/16 [History] amLODIPine [Norvasc] 5 mg PO DAILY 03/14/16 [History] Aspirin Enteric Coated [Aspirin EC] 325 mg PO BID #20 tablet. 10/17/16 [Rx] Omeprazole [PriLOSEC] 20 mg PO DAILY PRN 10/17/16 [History] OxyCODONE Immed Rel [Roxicodone 5 MG] 5 mg PO Q4HR PRN #24 tablet 10/17/16 [Rx] Tiotropium Br/Olodaterol HCl [Stiolto Respimat Inhal [place]] 2 puff IH DAILY [History] Allergies naproxen [From Naprosyn] Allergy (Verified 10/17/16 13:16) See Comments swelling and breathing difficulty Penicillins [PCN] Allergy (Verified 10/17/16 13:16) See Comments swelling Trimethobenzamide Allergy (Verified 10/17/16 13:16) See Comments swelling atorvastatin [From Lipitor] Adverse Reaction (Verified 10/17/16 13:16) See Comments elevated liver enzymes Internal Medicine - CN: Exam - Constitutional Vitals: Temp Pulse Resp BP Pulse Ox 101 F H 113 18 124/68 96 10/20/16 00:56 10/20/16 00:56 10/20/16 00:56 10/20/16 00:56 10/20/16 00:56 General appearance IM: Present: cooperative, pleasant, no acute distress, answers questions appropriately - Head Head exam: Present: atraumatic, normocephalic - Eye Eye exam: Present: EOMI, sclera anicteric - Respiratory Respiratory exam: Present: rales (R>L). Absent: accessory muscle use, chest wall tenderness - Cardiovascular Cardiovascular exam IM: Present: +S1, +S2, tachycardia - GI/Abdominal GI/Abdominal exam IM: Present: normal bowel sounds, soft. Absent: firm, guarding, mass, rebound, tenderness - Extremities Exam Extremities exam IM: Present: tenderness, warm. Absent: cyanotic, pedal edema - Neurological Exam Neurological exam: Present: alert, no focal deficits. Absent: facial droop, speech deficit Internal Medicine - CN: Reslt - Labs CBC & Chem 7: 10/19/16 06:00 10/19/16 06:00 Labs: Short CBC 10/19/16 Range/Units 06:00 Hgb 7.8 L D (12.9-16.9) g/dL Hct 25.4 L (37.5-50.1) % BMP 10/19/16 06:00 Sodium 133 L Potassium 4.0 Chloride 101 Carbon Dioxide 30 H BUN 10 Creatinine 0.65 L Glucose 142 H Calcium 8.1 L - Impressions Impressions Chest X-Ray 10/19/16 09:58 IMPRESSION: New opacities in the right lung base, which could represent consolidation/ pneumonia in appropriate clinical setting. There is also blunting of the right costophrenic angle, suggestive of a small effusion. D/ / Quan Valencia MD / Quan Valencia MD Interpreting Provider: Quan Valencia MD Consult Discharge Plan - Plan Referrals: Romel Fowler MD [Primary Care Provider] - <Aj Vaughn - Last Filed: 10/20/16 04:15> Date of Encounter: 10/20/16 Internal Medicine - CN: HPI - Data of Consult Requesting Physician: Jerrell Carr MD Internal Medicine - CN: Exam - Constitutional Vitals: Temp Pulse Resp BP Pulse Ox 101 F H 113 18 124/68 94 10/20/16 00:56 10/20/16 00:56 10/20/16 04:02 10/20/16 00:56 10/20/16 04:02 General appearance IM: Present: cooperative, pleasant, no acute distress - Eye Eye exam: Present: PERRL. Absent: scleral icterus - Neck Neck exam general surgery: Present: supple. Absent: tenderness - Respiratory Respiratory exam: Present: prolonged expiratory phase, rales, wheezes. Absent: CTAB, rhonchi - Cardiovascular Cardiovascular exam IM: Present: +S1, +S2. Absent: diastolic murmur, systolic murmur - GI/Abdominal GI/Abdominal exam IM: Present: soft - Extremities Exam Extremities exam IM: Present: warm. Absent: calf tenderness - Neurological Exam Neurological exam: Present: alert, oriented X3, no focal deficits - Psychiatric Psychiatric exam: Present: normal affect, normal mood - Skin Skin exam IM: Present: dry, warm. Absent: rash Internal Medicine - CN: Reslt - Labs CBC & Chem 7: 10/20/16 03:24 10/20/16 03:24 Labs: Short CBC 10/19/16 10/20/16 Range/Units 06:00 03:24 WBC 14.6 H (4.3-11.1) K/mcL Hgb 7.8 L D 8.7 L (12.9-16.9) g/dL Hct 25.4 L 28.1 L (37.5-50.1) % Plt Count 109 L (140-400) K/mcL Neutrophils # 10.1 H (1.6-8.9) K/mcL BMP 10/19/16 10/20/16 06:00 03:24 Sodium 133 L 131 L Potassium 4.0 4.3 Chloride 101 98 Carbon Dioxide 30 H 30 H BUN 10 7 L Creatinine 0.65 L 0.62 L Glucose 142 H 123 H Calcium 8.1 L 8.2 L - Impressions Impressions Chest X-Ray 10/19/16 09:58 IMPRESSION: New opacities in the right lung base, which could represent consolidation/ pneumonia in appropriate clinical setting. There is also blunting of the right costophrenic angle, suggestive of a small effusion. D/ / Quan Valencia MD / Quan Valencia MD Interpreting Provider: Quan Valencia MD - Diagnostic Studies Chest x-ray Status: image reviewed by me (small right pleural effusion) - Attending Attestation I discussed the patient [place], PMH, ROS, lab data, and exam findings with Dr. Ewing. I then saw and examined patient independently as well. Patient reports to me that his COPD has been flaring up for the last several weeks to months prior to his surgery. He has a baseline daily cough and wheeze; however, it has increased lately and then significantly over the last 24 hours. He denies and chest pain, pleurisy, or splinting with deep inspiration. He mostly complains of productive cough, wheezing, and SOB. He has some wheezing and distant breath sounds with prolonged expiratory phase on auscultation. I will add a short course of Prednisone to his treatment regimen. Other than my comments noted above and exam findings, I agree with Dr. Ewing's assessment and plan.
[2016-10-20] MEDS: *HR* HYDROmorphone (PF) 1 MG/ML SYRINGE IVP PRN ×5 (02:50→23:58)
[2016-10-20] MEDS: Ringers Solution, Lactated 1,000 ML IVC SCH (03:26)
[2016-10-20] MEDS: Levofloxacin 500 MG/100 ML 500 MG/100 ML BAG IVPB SCH (03:27)
[2016-10-20 03:34] LABS: Basophils # 0.1 K/mcL (0.0-0.2); Basophils % 0.3 %; Eosinophils # 0.3 K/mcL (0.0-0.6); Eosinophils % 2.3 %; Hematocrit 28.1 % (37.5-50.1); Hemoglobin 8.7 g/dL (12.9-16.9); Immature Granulocytes % 0.5 % (0-4); Immature Platelets 7.1 % (1.1-6.1); Lymphocytes # 2.4 K/mcL (0.6-4.6); Lymphocytes % 16.5 %; Mean Corpuscular Hemoglobin 27.3 pg (28.0-33.3); Mean Corpuscular Volume 88.1 fL (83.0-100.0); Mean Platelet Volume 11.3 fL (9.4-12.4); Monocytes # 1.6 K/mcL (0.0-1.3); Monocytes % 11.1 %; Neutrophils # 10.1 K/mcL (1.6-8.9); Platelet Count 109 K/mcL (140-400); Red Blood Count 3.19 M/mcL (4.19-5.50); Red Cell Distribution Width 13.8 % (11.5-14.5); Segmented Neutrophils % 69.3 %
[2016-10-20 03:45] LABS: BUN/Creatinine Ratio 11 (6-26); Blood Urea Nitrogen 7 mg/dL (8-26); Calcium 8.2 mg/dL (8.6-10.8); Carbon Dioxide 30 mEq/L (19-29); Chloride 98 mEq/L (98-109); Glucose 123 mg/dL (70-99); Osmolality,Calculated 271 (280-300); Potassium 4.3 mEq/L (3.5-4.5); Sodium 131 mEq/L (136-145); eGFR For African Americans > 60 (> 60); eGFR For Non-African Americans > 60 (> 60)
[2016-10-20] MEDS: Ipratropium/Albuterol Neb 3 ML IH SCH ×4 (04:00→22:48)
[2016-10-20] MEDS: predniSONE 20 MG TABLET PO SCH (04:42)
[2016-10-20] MEDS: *HR* Enoxaparin 30 MG/0.3 ML SYRINGE SQ SCH ×2 (06:04→16:54)
--- NOTE | 2016-10-20 07:23 | Orthopedics Progress Note ---
Date of Encounter: 10/20/16 Time of Encounter: 07:21 - Assessment and Plan (1) Arthritis of right hip Current Visit: Yes Status: Chronic (2) CHF (congestive heart failure) Current Visit: Yes Status: Chronic Qualifiers: Congestive heart failure type: combined Congestive heart failure chronicity : unspecified congestive heart failure chronicity Qualified Code(s): I50.40 - Unspecified combined systolic (congestive) and diastolic (congestive) heart failure (3) Hypertension Current Visit: Yes Status: Chronic Qualifiers: Hypertension type: unspecified Qualified Code(s): I10 - Essential (primary ) hypertension (4) COPD (chronic obstructive pulmonary disease) Current Visit: Yes Status: Chronic Qualifiers: COPD type: unspecified COPD Qualified Code(s): J44.9 - Chronic obstructive pulmonary disease, unspecified (5) Hyperlipidemia Current Visit: Yes Status: Chronic Qualifiers: Hyperlipidemia type: unspecified Qualified Code(s): E78.5 - Hyperlipidemia , unspecified (6) Coronary artery disease Current Visit: Yes Status: Chronic Qualifiers: Coronary Disease-Associated Artery/Lesion type: unspecified vessel or lesion type [place] vs. transplanted heart: [place] heart Associated angina: angina presence unspecified Qualified Code(s): I25.10 - Atherosclerotic heart disease of [place] coronary artery without angina pectoris (7) Hypothyroidism Current Visit: Yes Status: Chronic Qualifiers: Hypothyroidism type: unspecified Qualified Code(s): E03.9 - Hypothyroidism , unspecified (8) Acute blood loss anemia Current Visit: Yes Status: Acute (9) Status post total replacement of right hip Current Visit: Yes Status: Acute (10) Pneumonia Current Visit: Yes Status: Acute Qualifiers: Pneumonia type: due to unspecified organism Laterality: right Lung location: lower lobe of lung Qualified Code(s): J18.1 - Lobar pneumonia, unspecified organism (11) DVT prophylaxis Current Visit: Yes Status: Acute Subjective Interval history: Patient was seen this morning doing well with postop pneumonia, medical consult appreciated on IV antibiotics. Afebrile vital signs stable. Operative extremity: Neurovascularly intact Dressing clean dry and intact Calves nontender Assessment and plan: Continue with postoperative care Hematocrit 28 continue to monitor for 24 hours. Objective Vital signs: Vital Signs Temp Pulse Resp BP Pulse Ox 10/20/16 06:41 98.8 F 97 16 114/67 96 07/16/17 06:00 93 15 112/75 07/16/17 04:10 99.0 F 94 17 99/64 94 10/20/16 04:02 18 94 10/20/16 00:56 101 F H 113 18 124/68 96 10/19/16 21:33 18 92 10/19/16 21:00 95 10/19/16 19:13 99.9 F H 113 15 122/66 94 10/19/16 16:31 98.4 F 100 14 103/63 93 10/19/16 16:16 98.3 F 97 14 101/60 93 10/19/16 15:59 18 91 10/19/16 15:23 98.9 F 97 18 103/61 94 10/19/16 14:33 99.1 F 102 16 95/55 94 10/19/16 11:28 98.2 F 101 20 113/73 92 10/19/16 11:13 98.9 F 101 20 96/61 91 10/19/16 08:54 18 77 Intake and Output 10/19/16 10/19/16 10/20/16 15:59 23:59 07:59 Intake Total 1420 / 1420 950 / 950 200 / 200 Output Total 400 / 400 150 / 150 150 / 150 Balance 1020 / 1020 800 / 800 50 / 50 Intake: IV Fluids 1000 / 1000 Lactated Ringers 1,000 ML 1000 / 1000 @ 75 mls/hr IVC .[id number] [facility] Rx#:[id number] Oral 120 / 120 600 / 600 200 / 200 Blood Product 300 / 300 350 / 350 Rbcs Leuko Poor As-1 300 / 300 Unit [id number] Rbcs Leuko Poor As-1 350 / 350 Unit [id number] Output: Urine 400 / 400 150 / 150 150 / 150 Other: Meal Lunch Percent of Meal Consumed 40% # Voids 1 1 - Labs CBC & BMP: 10/20/16 03:24 10/20/16 03:24 Labs: Abnormal lab results WBC 14.6 K/mcL (4.3-11.1) H 10/20/16 03:24 RBC 3.19 M/mcL (4.19-5.50) L 10/20/16 03:24 Hgb 8.7 g/dL (12.9-16.9) L 10/20/16 03:24 Hct 28.1 % (37.5-50.1) L 10/20/16 03:24 MCH 27.3 pg (28.0-33.3) L 10/20/16 03:24 MCHC 31.0 g/dL (31.6-35.5) L 10/20/16 03:24 Plt Count 109 K/mcL (140-400) L 10/20/16 03:24 Neutrophils # 10.1 K/mcL (1.6-8.9) H 10/20/16 03:24 Monocytes # 1.6 K/mcL (0.0-1.3) H 10/20/16 03:24 Immature Plt Fraction 7.1 % (1.1-6.1) H 10/20/16 03:24 Sodium 131 mEq/L (136-145) L 10/20/16 03:24 Carbon Dioxide 30 mEq/L (19-29) H 10/20/16 03:24 BUN 7 mg/dL (8-26) L 10/20/16 03:24 Creatinine 0.62 mg/dL (0.72-1.25) L 10/20/16 03:24 Glucose 123 mg/dL (70-99) H 10/20/16 03:24 Calculated Osmolality 271 (280-300) L 10/20/16 03:24 Calcium 8.2 mg/dL (8.6-10.8) L 10/20/16 03:24 - VTE Documentation of Mechanical Device: Venous foot pump, device Consult Discharge Plan - Plan Referrals: Romel Fowler MD [Primary Care Provider] -
[2016-10-20] MEDS: Multivit/Ca/Min/Fe/FA 1 TAB TABLET PO SCH (07:59)
[2016-10-20] MEDS: amLODIPine 5 MG TABLET PO SCH (07:59)
[2016-10-20] MEDS: Ascorbic Acid 500 MG TABLET PO SCH ×2 (07:59→16:03)
[2016-10-20] MEDS: Aspirin 81 MG TAB.CHEW PO SCH (07:59)
--- NOTE | 2016-10-20 09:08 | Internal Med Progress Note ---
<DialloGalen paulino - Last Filed: 10/20/16 11:45> Date of Encounter: 10/20/16 Time of Encounter: 09:06 - Assessment and plan (1) Pneumonia Current Visit: Yes Status: Acute Assessment and plan: Postoperative pneumonia with fever and increased productive cough. CXR shows New opacities in the right lung base, which could represent consolidation/ pneumonia in the appropriate clinical setting. There is also blunting of the right costophrenic angle, suggestive of a small effusion. Levaquin monotherapy, but low threshold of adding Vancomycin depending on cultures and white count results Blood cultures collected, await results and sensitivities. Sputum culture pending Qualifiers: Pneumonia type: due to unspecified organism Laterality: right Lung location: lower lobe of lung Qualified Code(s): J18.1 - Lobar pneumonia, unspecified organism (2) COPD (chronic obstructive pulmonary disease) Current Visit: Yes Status: Acute Assessment and plan: Patient currently requiring more than home dose of oxygen and saturating in mid 90's Continue with Levaquin, supplemental oxygen, breathing treatments, and expectorant. We will give 3 days of prednisone 40 mg, cautious steroids due to recent surgery and potential for impaired wound healing Qualifiers: COPD type: COPD with acute exacerbation Qualified Code(s): J44.1 - Chronic obstructive pulmonary disease with (acute) exacerbation (3) CHF (congestive heart failure) Current Visit: Yes Status: Chronic Assessment and plan: Chronic CHF present on admission, not in acute exacerbation. BNP level 51, dyspnea on exertion, orthopnea, PND, rales on pulmonary exam, no peripheral edema, continue Lasix, metoprolol, and switch amlodipine to lisinopril. Qualifiers: Congestive heart failure type: unspecified congestive heart failure type Congestive heart failure chronicity: chronic Qualified Code(s): I50.9 - Heart failure, unspecified (4) Hypertension Current Visit: Yes Status: Chronic Assessment and plan: Continue Lasix, metoprolol, switch amlodipine to lisinopril in light of history of CHF. Qualifiers: Hypertension type: unspecified Qualified Code(s): I10 - Essential (primary ) hypertension (5) Coronary artery disease Current Visit: Yes Status: Chronic Assessment and plan: Previous 5 vessel bypass. No chest pain at this time Continue patient on ASA, Zocor, and BB Qualifiers: Coronary Disease-Associated Artery/Lesion type: unspecified vessel or lesion type [place] vs. transplanted heart: [place] heart Associated angina: angina presence unspecified Qualified Code(s): I25.10 - Atherosclerotic heart disease of [place] coronary artery without angina pectoris (6) Status post total replacement of right hip Current Visit: Yes Status: Acute Assessment and plan: Patient is POD #3 right total hip replacement by Dr. Carr Management per primary team (7) Acute blood loss anemia Current Visit: Yes Status: Acute Assessment and plan: Likely related to recent surgery and hemodilution as patient has been net positive almost 3 L since admission No obvious signs of blood loss upon examination and questioning; no evidence of hematoma around surgical site Status post 2 units pRBCs transfused, continue to monitor CBC (8) Hyponatremia Current Visit: Yes Status: Acute Assessment and plan: Continue IV fluids. (9) DVT prophylaxis Current Visit: Yes Status: Acute Assessment and plan: Lovenox. Patient seen and examined, plan discussed with and agreed upon with Dr. Archuleta. - Subjective Interval history: Patient sitting comfortably in bed eating breakfast. Patient is currently on 3.5 L supplemental oxygen, reports baseline home O2 is 2 L oxygen at night,. Patient reports productive cough with green sputum production for the past 3 weeks, dyspnea on exertion, and difficulty lying flat due to shortness of breath. Patient denies fevers, chills, chest pain, abdominal pain, dysuria, or leg edema. - Constitutional Vitals: Temp Pulse Resp BP Pulse Ox 98.8 F 97 16 114/67 96 10/20/16 06:41 10/20/16 06:41 10/20/16 06:41 10/20/16 06:41 10/20/16 06:41 General appearance: Present: cooperative, pleasant, no acute distress, answers questions appropriately - Head Head exam: Present: atraumatic, normocephalic - Eye Eye exam: Present: PERRL, conjuntiva pink, sclera anicteric Pupils: Present: PERRL - ENT ENT exam: Present: mucous membranes moist, normal oropharynx - Neck Neck exam general surgery: Present: supple, trachea midline. Absent: lymphadenopathy - Respiratory Respiratory exam: Present: prolonged expiratory phase, wheezes. Absent: accessory muscle use, rales, rhonchi Additional comments: Wheezing, rales right greater than left, decreased breath sounds - Cardiovascular Cardiovascular exam: Present: RRR, +S1, +S2. Absent: diastolic murmur, gallop, rubs, systolic murmur - GI/Abdominal GI/Abdominal exam: Present: normal bowel sounds, soft, no peritoneal signs. Absent: distended, tenderness - Extremities Exam Extremities exam: Present: warm, radial pulses palpable and symetrical. Absent : calf tenderness, cyanotic, pedal edema - [place]ison Incision: Present: clean and dry, intact. Absent: draining - Neurological Exam Neurological exam: Present: CN II-XII intact, oriented X3, no focal deficits. Absent: pronater drift, facial droop, speech deficit - Skin Skin exam: Present: dry, intact, warm Additional comments: Right hip incision dressing C/D/I Internal Medicine: Result - Labs CBC & Chem 7: 10/20/16 03:24 10/20/16 03:24 Labs: Short CBC 10/20/16 Range/Units 03:24 WBC 14.6 H (4.3-11.1) K/mcL Hgb 8.7 L (12.9-16.9) g/dL Hct 28.1 L (37.5-50.1) % Plt Count 109 L (140-400) K/mcL Neutrophils # 10.1 H (1.6-8.9) K/mcL BMP 10/20/16 03:24 Sodium 131 L Potassium 4.3 Chloride 98 Carbon Dioxide 30 H BUN 7 L Creatinine 0.62 L Glucose 123 H Calcium 8.2 L - Impressions Impressions Chest X-Ray 10/19/16 09:58 IMPRESSION: New opacities in the right lung base, which could represent consolidation/pneumonia in the appropriate clinical setting. There is also blunting of the right costophrenic angle, suggestive of a small effusion. D/ / 10/20/2016 07:02:31 Quan Valencia MD / cami Interpreting Provider: Quan Valencia MD - VTE Documentation of Mechanical Device: Venous foot pump, device Consult Discharge Plan - Plan Referrals: Romel Fowler MD [Primary Care Provider] - <Lorenzo Archuleta - Last Filed: 10/20/16 14:55> Date of Encounter: 10/20/16 - Assessment and plan (1) Acute on chronic respiratory failure with hypoxia Current Visit: Yes Status: Acute Assessment and plan: Weaning oxygen as able. (2) Pneumonia Current Visit: Yes Status: Suspected Qualifiers: Pneumonia type: due to Pneumococcus Laterality: right Lung location: lower lobe of lung Qualified Code(s): J13 - Pneumonia due to Streptococcus pneumoniae (3) COPD (chronic obstructive pulmonary disease) Current Visit: Yes Status: Acute Qualifiers: COPD type: COPD with acute exacerbation Qualified Code(s): J44.1 - Chronic obstructive pulmonary disease with (acute) exacerbation (4) Acute blood loss anemia Current Visit: Yes Status: Acute (5) Hypertension Current Visit: Yes Status: Chronic Qualifiers: Hypertension type: essential hypertension Qualified Code(s): I10 - Essential (primary) hypertension (6) Hyperlipidemia Current Visit: Yes Status: Chronic Qualifiers: Hyperlipidemia type: unspecified Qualified Code(s): E78.5 - Hyperlipidemia , unspecified (7) Hypothyroidism Current Visit: Yes Status: Chronic Qualifiers: Hypothyroidism type: unspecified Qualified Code(s): E03.9 - Hypothyroidism , unspecified - Constitutional Vitals: Temp Pulse Resp BP Pulse Ox 98.1 F 87 16 109/61 96 10/20/16 11:16 10/20/16 11:16 10/20/16 11:16 10/20/16 11:16 10/20/16 11:16 Internal Medicine: Result - Labs CBC & Chem 7: 10/20/16 03:24 10/20/16 03:24 Labs: Short CBC 10/20/16 Range/Units 03:24 WBC 14.6 H (4.3-11.1) K/mcL Hgb 8.7 L (12.9-16.9) g/dL Hct 28.1 L (37.5-50.1) % Plt Count 109 L (140-400) K/mcL Neutrophils # 10.1 H (1.6-8.9) K/mcL BMP 10/20/16 03:24 Sodium 131 L Potassium 4.3 Chloride 98 Carbon Dioxide 30 H BUN 7 L Creatinine 0.62 L Glucose 123 H Calcium 8.2 L - Impressions Impressions Chest X-Ray 10/19/16 09:58 IMPRESSION: New opacities in the right lung base, which could represent consolidation/pneumonia in the appropriate clinical setting. There is also blunting of the right costophrenic angle, suggestive of a small effusion. D/ / 10/20/2016 07:02:31 Quan Valencia MD / cami Interpreting Provider: Quan Valencia MD - Attending Attestation I examined this patient and my medical decision-making was reviewed with the Resident Physician on 10/20/16. I agree with the documented findings, disposition and treatment plan as described except to the extent set forth below. Mr Billings is currently being seen for acute exac COPD/pneumonia and hypoxia. He is high risk due to potential for worsening respiratory status. He is s/p L MIRTA. Mr Billings feels OK. He relates having issues with cough, congestion and dyspnea prior to surgery and has had episodes of COPD exacerbation in the past. No fever or chills. No GI symptoms. Oxygen still is on a higher level than at baseline. Able to lie flatter at this time. Exam Alert. Comfortable Mucus membranes moist Heart reg Lungs diminished - scant wheeze R side Abd soft I/P 1. Acute hypoxic resp failure - wean oxygen as able 2. Pneumonia - most likely present on admission and not related to OR as patient had symptoms prior to admission. Continue abx 3. COPD exac - on abx and steroids Further diagnoses and plan as above.
[2016-10-20] MEDS: Roflumilast [Daliresp] 500 MCG PO SCH (09:10)
[2016-10-20] MEDS: Tiotropium Br/Olodaterol Hcl [Stiolto Respimat Inhal IH SCH (09:10)
[2016-10-21] MEDS: *HR* OxyCODONE Immed Rel 5 MG TABLET PO PRN ×5 (02:19→23:47)
[2016-10-21] MEDS: Levofloxacin 500 MG/100 ML 500 MG/100 ML BAG IVPB SCH (02:20)
[2016-10-21] MEDS: Ipratropium/Albuterol Neb 3 ML IH SCH ×4 (04:24→22:26)
[2016-10-21] MEDS: *HR* HYDROmorphone (PF) 1 MG/ML SYRINGE IVP PRN ×2 (04:48→08:06)
[2016-10-21] MEDS: *HR* Enoxaparin 30 MG/0.3 ML SYRINGE SQ SCH ×2 (04:49→17:00)
[2016-10-21 05:36] LABS: Basophils % 0.1 %; Eosinophils # 0.3 K/mcL (0.0-0.6); Eosinophils % 1.7 %; Hematocrit 25.4 % (37.5-50.1); Immature Granulocytes % 0.6 % (0-4); Lymphocytes # 2.3 K/mcL (0.6-4.6); Lymphocytes % 14.3 %; Mean Corpuscular HGB Conc 31.5 g/dL (31.6-35.5); Mean Corpuscular Volume 88.8 fL (83.0-100.0); Mean Platelet Volume 11.7 fL (9.4-12.4); Monocytes # 1.7 K/mcL (0.0-1.3); Neutrophils # 11.4 K/mcL (1.6-8.9); Platelet Count 112 K/mcL (140-400); Red Blood Count 2.86 M/mcL (4.19-5.50); Red Cell Distribution Width 13.8 % (11.5-14.5); Segmented Neutrophils % 72.3 %
[2016-10-21 05:49] LABS: BUN/Creatinine Ratio 15 (6-26); Blood Urea Nitrogen 8 mg/dL (8-26); Calcium 8.2 mg/dL (8.6-10.8); Carbon Dioxide 32 mEq/L (19-29); Chloride 101 mEq/L (98-109); Glucose 120 mg/dL (70-99); Osmolality,Calculated 282 (280-300); Potassium 3.8 mEq/L (3.5-4.5); Sodium 136 mEq/L (136-145); eGFR For African Americans > 60 (> 60); eGFR For Non-African Americans > 60 (> 60)
--- NOTE | 2016-10-21 06:47 | Orthopedics Progress Note ---
Date of Encounter: 10/21/16 Time of Encounter: 06:45 - Assessment and Plan (1) Arthritis of right hip Current Visit: Yes Status: Chronic (2) CHF (congestive heart failure) Current Visit: Yes Status: Chronic Qualifiers: Congestive heart failure type: unspecified congestive heart failure type Congestive heart failure chronicity: chronic Qualified Code(s): I50.9 - Heart failure, unspecified (3) Hypertension Current Visit: Yes Status: Chronic Qualifiers: Hypertension type: essential hypertension Qualified Code(s): I10 - Essential (primary) hypertension (4) COPD (chronic obstructive pulmonary disease) Current Visit: Yes Status: Acute Qualifiers: COPD type: COPD with acute exacerbation Qualified Code(s): J44.1 - Chronic obstructive pulmonary disease with (acute) exacerbation (5) Hyperlipidemia Current Visit: Yes Status: Chronic Qualifiers: Hyperlipidemia type: unspecified Qualified Code(s): E78.5 - Hyperlipidemia , unspecified (6) Coronary artery disease Current Visit: Yes Status: Chronic Qualifiers: Coronary Disease-Associated Artery/Lesion type: unspecified vessel or lesion type [place] vs. transplanted heart: [place] heart Associated angina: angina presence unspecified Qualified Code(s): I25.10 - Atherosclerotic heart disease of [place] coronary artery without angina pectoris (7) Hypothyroidism Current Visit: Yes Status: Chronic Qualifiers: Hypothyroidism type: unspecified Qualified Code(s): E03.9 - Hypothyroidism , unspecified (8) Acute blood loss anemia Current Visit: Yes Status: Acute (9) Status post total replacement of right hip Current Visit: Yes Status: Acute (10) Pneumonia Current Visit: Yes Status: Suspected Qualifiers: Pneumonia type: due to Pneumococcus Laterality: right Lung location: lower lobe of lung Qualified Code(s): J13 - Pneumonia due to Streptococcus pneumoniae (11) DVT prophylaxis Current Visit: Yes Status: Acute Subjective Interval history: Patient was seen this morning doing well this a.m. Afebrile vital signs stable. Operative extremity: Neurovascularly intact Dressing clean dry and intact Calves nontender Assessment and plan: Continue with postoperative care Hemoglobin 8.0 patient asymptomatic we will discharge today if cleared by medicine on levofloxacin. Objective Vital signs: Vital Signs Temp Pulse Resp BP Pulse Ox 10/21/16 04:56 98.1 F 106 18 134/88 97 10/21/16 04:24 18 93 10/20/16 23:42 98.6 F 103 18 121/61 94 10/20/16 22:48 18 95 10/20/16 20:00 97 10/20/16 19:00 98.4 F 100 15 112/71 97 10/20/16 15:36 16 93 10/20/16 14:57 98.4 F 93 16 106/58 95 10/20/16 11:16 98.1 F 87 16 109/61 96 10/20/16 10:25 16 96 10/20/16 09:23 98.8 F Intake and Output 10/20/16 10/20/16 10/21/16 15:59 23:59 07:59 Intake Total 890 / 890 100 / 100 600 / 600 Output Total 950 / 950 375 / 375 425 / 425 Balance -60 / -60 -275 / -275 175 / 175 Intake: Oral 890 / 890 100 / 100 600 / 600 Output: Urine 950 / 950 375 / 375 425 / 425 Other: Meal Lunch Percent of Meal Consumed 50% Weight 81.3 kg Patient Weight 10/21/16 23:59 Weight 81.3 kg - Labs CBC & BMP: 10/21/16 04:31 10/21/16 04:31 Labs: Abnormal lab results WBC 15.8 K/mcL (4.3-11.1) H 10/21/16 04:31 RBC 2.86 M/mcL (4.19-5.50) L 10/21/16 04:31 Hgb 8.0 g/dL (12.9-16.9) L 10/21/16 04:31 Hct 25.4 % (37.5-50.1) L 10/21/16 04:31 MCHC 31.5 g/dL (31.6-35.5) L 10/21/16 04:31 Plt Count 112 K/mcL (140-400) L 10/21/16 04:31 Neutrophils # 11.4 K/mcL (1.6-8.9) H 10/21/16 04:31 Monocytes # 1.7 K/mcL (0.0-1.3) H 10/21/16 04:31 Immature Plt Fraction 7.1 % (1.1-6.1) H 10/20/16 03:24 Carbon Dioxide 32 mEq/L (19-29) H 10/21/16 04:31 Creatinine 0.53 mg/dL (0.72-1.25) L 10/21/16 04:31 Glucose 120 mg/dL (70-99) H 10/21/16 04:31 Calcium 8.2 mg/dL (8.6-10.8) L 10/21/16 04:31 - VTE Documentation of Mechanical Device: Venous foot pump, device Consult Discharge Plan - Plan Referrals: Romel Fowler MD [Primary Care Provider] - Prescriptions: Levofloxacin [Levaquin] 750 mg PO Q24H #10 tablet
[2016-10-21] MEDS: Multivit/Ca/Min/Fe/FA 1 TAB TABLET PO SCH (07:58)
[2016-10-21] MEDS: Aspirin 81 MG TAB.CHEW PO SCH (07:58)
[2016-10-21] MEDS: Ascorbic Acid 500 MG TABLET PO SCH ×2 (07:59→17:00)
[2016-10-21] MEDS: predniSONE 20 MG TABLET PO SCH (07:59)
[2016-10-21] MEDS: Tiotropium Br/Olodaterol Hcl [Stiolto Respimat Inhal IH SCH (08:32)
[2016-10-21] MEDS: Roflumilast [Daliresp] 500 MCG PO SCH (08:32)
--- NOTE | 2016-10-21 09:21 | Internal Med Progress Note ---
<Galen Fontanez - Last Filed: 10/21/16 15:29> Date of Encounter: 10/21/16 Time of Encounter: 09:19 - Assessment and plan (1) Pneumonia Current Visit: Yes Status: Suspected Assessment and plan: Pneumonia with fever 101 F last night, continued shortness of breath, and productive cough for the past 3 weeks prior to surgery. Repeat CXR shows Severe emphysematous change. No definite superimposed process. Chronic blunting of the right costophrenic angle, likely related to pleural thickening/ scarring. Continue Levaquin (day 2), added Vancomycin (day 1) due to postop fever, increased white count, and minimal improvement in symptoms. Continue steroids, breathing treatments, expectorant, and incentive spirometry Blood cultures show no growth. Sputum culture pending. We will reevaluate tomorrow. Will need antibiotics upon discharge Qualifiers: Pneumonia type: due to Pneumococcus Laterality: right Lung location: lower lobe of lung Qualified Code(s): J13 - Pneumonia due to Streptococcus pneumoniae (2) COPD (chronic obstructive pulmonary disease) Current Visit: Yes Status: Acute Assessment and plan: Patient currently requiring 3 L oxygen. Wean as tolerated Continue with Levaquin (day 2), add vancomycin (day 1), supplemental oxygen, breathing treatments, and expectorant. Continue day 2 of 3 of prednisone 40 mg , cautious steroids due to recent surgery and potential for impaired wound healing Qualifiers: COPD type: COPD with acute exacerbation Qualified Code(s): J44.1 - Chronic obstructive pulmonary disease with (acute) exacerbation (3) Postoperative fever Current Visit: Yes Status: Acute Assessment and plan: Postop day 4. T max 101F likely related to ongoing pneumonia. CXR shows no atelectasis. UA negative. No calf tenderness. No signs of wound infection. Blood cultures show no growth. Sputum culture pending. Continue Tylenol and monitor (4) Status post total replacement of right hip Current Visit: Yes Status: Acute Assessment and plan: Patient is POD #4 right total hip replacement by Dr. Carr Management per primary team, anticipated discharge noted (5) CHF (congestive heart failure) Current Visit: Yes Status: Chronic Assessment and plan: Chronic CHF present on admission, not in acute exacerbation. BNP level 51, dyspnea on exertion, orthopnea, PND, rales on pulmonary exam, no peripheral edema, continue Lasix, metoprolol, and switch amlodipine to lisinopril. Qualifiers: Congestive heart failure type: unspecified congestive heart failure type Congestive heart failure chronicity: chronic Qualified Code(s): I50.9 - Heart failure, unspecified (6) Hypertension Current Visit: Yes Status: Chronic Assessment and plan: Continue Lasix, metoprolol, switched amlodipine to lisinopril in light of CHF. Qualifiers: Hypertension type: essential hypertension Qualified Code(s): I10 - Essential (primary) hypertension (7) Coronary artery disease Current Visit: Yes Status: Chronic Assessment and plan: Previous 5 vessel bypass. No chest pain at this time Continue patient on ASA, Zocor, and BB Qualifiers: Coronary Disease-Associated Artery/Lesion type: unspecified vessel or lesion type [place] vs. transplanted heart: [place] heart Associated angina: angina presence unspecified Qualified Code(s): I25.10 - Atherosclerotic heart disease of [place] coronary artery without angina pectoris (8) Acute blood loss anemia Current Visit: Yes Status: Acute Assessment and plan: Hemoglobin 8.0 today. Likely related to recent surgery and hemodilution No obvious signs of blood loss upon examination and questioning; no evidence of hematoma around surgical site Status post 2 units pRBCs transfused, continue to monitor CBC (9) Hyponatremia Current Visit: Yes Status: Resolved Assessment and plan: Continue IV fluids. (10) DVT prophylaxis Current Visit: Yes Status: Acute Assessment and plan: Lovenox. Patient seen and examined, plan discussed with and agreed upon with Dr. Archuleta. - Subjective Interval history: Patient sitting comfortably in bed eating breakfast. Patient is currently on 3 L supplemental oxygen, reports baseline home O2 is 2 L oxygen at night. Patient reports unchanged shortness of breath, productive cough, chills, and fever of 101 F last night. Patient reports ambulating with physical therapy in the [place] and using incentive spirometry. Discharge planning noted per Dr. Carr - Constitutional Vitals: Temp Pulse Resp BP Pulse Ox 98.0 F 107 18 119/64 94 10/21/16 06:44 10/21/16 06:44 10/21/16 06:44 10/21/16 06:44 10/21/16 08:00 General appearance: Present: cooperative, pleasant, no acute distress, answers questions appropriately Exam: On 3 L oxygen via nasal cannula - Head Head exam: Present: atraumatic, normocephalic - Eye Eye exam: Present: PERRL, conjuntiva pink, sclera anicteric Pupils: Present: PERRL - ENT ENT exam: Present: mucous membranes moist, normal oropharynx - Neck Neck exam general surgery: Present: supple, trachea midline. Absent: lymphadenopathy - Respiratory Respiratory exam: Present: decreased breath sounds, rales (Right greater than left), wheezes. Absent: accessory muscle use, rhonchi - Cardiovascular Cardiovascular exam: Present: RRR, +S1, +S2. Absent: diastolic murmur, gallop, rubs, systolic murmur - GI/Abdominal GI/Abdominal exam: Present: normal bowel sounds, soft, no peritoneal signs. Absent: distended, tenderness - Extremities Exam Extremities exam: Present: warm, radial pulses palpable and symetrical. Absent : calf tenderness, cyanotic, pedal edema - Neurological Exam Neurological exam: Present: CN II-XII intact, oriented X3, no focal deficits. Absent: pronater drift, facial droop, speech deficit - Psychiatric Psychiatric exam: Present: flat affect, normal mood - Skin Skin exam: Present: dry, intact, warm Internal Medicine: Result - Labs CBC & Chem 7: 10/21/16 04:31 10/21/16 04:31 Labs: Short CBC 10/21/16 Range/Units 04:31 WBC 15.8 H (4.3-11.1) K/mcL Hgb 8.0 L (12.9-16.9) g/dL Hct 25.4 L (37.5-50.1) % Plt Count 112 L (140-400) K/mcL Neutrophils # 11.4 H (1.6-8.9) K/mcL BMP 10/21/16 04:31 Sodium 136 Potassium 3.8 Chloride 101 Carbon Dioxide 32 H BUN 8 Creatinine 0.53 L Glucose 120 H Calcium 8.2 L - Impressions Impressions Chest X-Ray 10/19/16 09:58 IMPRESSION: New opacities in the right lung base, which could represent consolidation/pneumonia in the appropriate clinical setting. There is also blunting of the right costophrenic angle, suggestive of a small effusion. D/ / 10/20/2016 07:02:31 Quan Valencia MD / cami Interpreting Provider: Quan Valencia MD - VTE Documentation of Mechanical Device: Venous foot pump, device Consult Discharge Plan - Plan Referrals: Romel Fowler MD [Primary Care Provider] - Prescriptions: Levofloxacin [Levaquin] 750 mg PO Q24H #10 tablet <Lorenzo Archuleta - Last Filed: 10/21/16 16:08> Date of Encounter: 10/21/16 - Assessment and plan (1) Acute on chronic respiratory failure with hypoxia Current Visit: Yes Status: Acute (2) Pneumonia Current Visit: Yes Status: Suspected Qualifiers: Pneumonia type: due to Pneumococcus Laterality: right Lung location: lower lobe of lung Qualified Code(s): J13 - Pneumonia due to Streptococcus pneumoniae (3) COPD (chronic obstructive pulmonary disease) Current Visit: Yes Status: Acute Qualifiers: COPD type: COPD with acute exacerbation Qualified Code(s): J44.1 - Chronic obstructive pulmonary disease with (acute) exacerbation (4) Acute blood loss anemia Current Visit: Yes Status: Acute (5) Hypertension Current Visit: Yes Status: Chronic Qualifiers: Hypertension type: essential hypertension Qualified Code(s): I10 - Essential (primary) hypertension (6) Hyperlipidemia Current Visit: Yes Status: Chronic Qualifiers: Hyperlipidemia type: unspecified Qualified Code(s): E78.5 - Hyperlipidemia , unspecified (7) Hypothyroidism Current Visit: Yes Status: Chronic Qualifiers: Hypothyroidism type: unspecified Qualified Code(s): E03.9 - Hypothyroidism , unspecified - Constitutional Vitals: Temp Pulse Resp BP Pulse Ox 99.2 F 96 20 112/72 95 10/21/16 11:26 10/21/16 11:26 10/21/16 15:45 10/21/16 11:26 10/21/16 15:45 Internal Medicine: Result - Labs CBC & Chem 7: 10/21/16 04:31 10/21/16 04:31 Labs: Short CBC 10/21/16 Range/Units 04:31 WBC 15.8 H (4.3-11.1) K/mcL Hgb 8.0 L (12.9-16.9) g/dL Hct 25.4 L (37.5-50.1) % Plt Count 112 L (140-400) K/mcL Neutrophils # 11.4 H (1.6-8.9) K/mcL BMP 10/21/16 04:31 Sodium 136 Potassium 3.8 Chloride 101 Carbon Dioxide 32 H BUN 8 Creatinine 0.53 L Glucose 120 H Calcium 8.2 L Urine 10/21/16 Range/Units 12:30 Urine Color Yellow (Yellow) Urine Clarity Clear (Clear) Urine pH 6.0 (5.0-8.0) pH Units Ur Specific [place] 1.011 (1.010-1.025) Urine Protein Negative (Neg-Trace) mg/dL Urine Glucose (UA) Normal (Normal) mg/dL - Impressions Impressions Chest X-Ray 10/19/16 09:58 IMPRESSION: New opacities in the right lung base, which could represent consolidation/pneumonia in the appropriate clinical setting. There is also blunting of the right costophrenic angle, suggestive of a small effusion. D/ / 10/20/2016 07:02:31 Quan Valencia MD / cami Interpreting Provider: Quan Valencia MD Chest X-Ray 10/21/16 09:32 IMPRESSION: Severe emphysematous change. No definite superimposed process. Chronic blunting of the right costophrenic angle, likely related to pleural thickening/ scarring. D/ / Gerardo Dillard MD / Gerardo Dillard MD Interpreting Provider: Gerardo Dillard MD - Attending Attestation I examined this patient and my medical decision-making was reviewed with the Resident Physician on 10/21/16. I agree with the documented findings, disposition and treatment plan as described except to the extent set forth below. Mr. Billings is currently admitted for R MIRTA. He has developed pneumonia and hypoxia. He remains high risk due to potential for worsening respiratory status. Mr Billings had a fever this AM and WBC has gone up (also on steroids). He is still quite dyspneic. No chest pain. Coughing some. No urinary symptoms. No GI symptoms. Exam Alert. Comfortable Mucus membranes moist Heart reg - distant Lungs with scattered rhonchi Abd soft No edema Labs reviewed I/P 1. Hypoxic resp failure - wean as possible 2. Pneumonia - most likely present on admit CXR - ? fluid overload as well. Further diagnoses and plan as above
[2016-10-21] MEDS: Ringers Solution, Lactated 1,000 ML IVC SCH (09:55)
[2016-10-21] MEDS: Furosemide 40 MG/4 ML VIAL IVP SCH (09:56)
[2016-10-21] MEDS: Ketorolac 15 MG/ML VIAL IVP PRN ×2 (09:57→17:07)
[2016-10-21] MEDS ORDERED: Vancomycin 2,000 MG in D5% in Water 500 ML IVPB ONE (10:00)
[2016-10-21] MEDS ORDERED: Vancomycin 1,250 MG in D5% in Water 250 ML IVPB SCH (10:00)
[2016-10-21] MEDS: Acetaminophen IV 1,000 MG/100 ML INFUS..BTL IVPB PRN (11:49)
[2016-10-21 12:45] LABS: Bilirubin,Urine Negative (Negative); Blood,Urine Negative (Negative); Clarity,Urine Clear (Clear); Color,Urine Yellow (Yellow); Glucose,Urine (UA) Normal (Normal); Ketones,Urine Negative (Negative); Leukocyte Esterase,Urine Negative (Negative); Nitrite,Urine Negative (Negative); Protein,Urine Negative (Neg-Trace); Specific Gravity,Urine 1.011 (1.010-1.025); Urobilinogen,Urine Normal (Normal)
[2016-10-21] MEDS: Vancomycin 1,250 MG in D5% in Water 250 ML IVPB SCH (21:55)
[2016-10-22] MEDS: Levofloxacin 500 MG/100 ML 500 MG/100 ML BAG IVPB SCH (01:39)
[2016-10-22] MEDS: Ketorolac 15 MG/ML VIAL IVP PRN ×2 (01:44→07:55)
[2016-10-22] MEDS: Ipratropium/Albuterol Neb 3 ML IH SCH ×4 (04:29→21:43)
[2016-10-22] MEDS: *HR* Enoxaparin 30 MG/0.3 ML SYRINGE SQ SCH ×2 (05:28→17:14)
[2016-10-22] MEDS: *HR* OxyCODONE Immed Rel 5 MG TABLET PO PRN ×5 (05:29→22:25)
[2016-10-22 05:36] LABS: Basophils % 0.1 %; Eosinophils # 0.1 K/mcL (0.0-0.6); Hematocrit 25.6 % (37.5-50.1); Immature Granulocytes % 0.6 % (0-4); Lymphocytes # 1.8 K/mcL (0.6-4.6); Lymphocytes % 13.5 %; Mean Corpuscular HGB Conc 31.3 g/dL (31.6-35.5); Mean Corpuscular Hemoglobin 27.6 pg (28.0-33.3); Mean Corpuscular Volume 88.3 fL (83.0-100.0); Mean Platelet Volume 10.9 fL (9.4-12.4); Monocytes # 1.5 K/mcL (0.0-1.3); Monocytes % 11.2 %; Platelet Count 143 K/mcL (140-400); Red Cell Distribution Width 13.9 % (11.5-14.5); Segmented Neutrophils % 73.6 %
[2016-10-22 05:52] LABS: BUN/Creatinine Ratio 18 (6-26); Blood Urea Nitrogen 10 mg/dL (8-26); Calcium 8.8 mg/dL (8.6-10.8); Carbon Dioxide 35 mEq/L (19-29); Chloride 100 mEq/L (98-109); Glucose 119 mg/dL (70-99); Osmolality,Calculated 284 (280-300); Potassium 3.8 mEq/L (3.5-4.5); Sodium 137 mEq/L (136-145); eGFR For African Americans > 60 (> 60); eGFR For Non-African Americans > 60 (> 60)
--- NOTE | 2016-10-22 06:42 | Orthopedics Progress Note ---
Date of Encounter: 10/22/16 Time of Encounter: 06:41 - Assessment and Plan (1) Arthritis of right hip Current Visit: Yes Status: Chronic (2) CHF (congestive heart failure) Current Visit: Yes Status: Chronic Qualifiers: Congestive heart failure type: unspecified congestive heart failure type Congestive heart failure chronicity: chronic Qualified Code(s): I50.9 - Heart failure, unspecified (3) Hypertension Current Visit: Yes Status: Chronic Qualifiers: Hypertension type: essential hypertension Qualified Code(s): I10 - Essential (primary) hypertension (4) COPD (chronic obstructive pulmonary disease) Current Visit: Yes Status: Acute Qualifiers: COPD type: COPD with acute exacerbation Qualified Code(s): J44.1 - Chronic obstructive pulmonary disease with (acute) exacerbation (5) Hyperlipidemia Current Visit: Yes Status: Chronic Qualifiers: Hyperlipidemia type: unspecified Qualified Code(s): E78.5 - Hyperlipidemia , unspecified (6) Coronary artery disease Current Visit: Yes Status: Chronic Qualifiers: Coronary Disease-Associated Artery/Lesion type: unspecified vessel or lesion type [place] vs. transplanted heart: [place] heart Associated angina: angina presence unspecified Qualified Code(s): I25.10 - Atherosclerotic heart disease of [place] coronary artery without angina pectoris (7) Hypothyroidism Current Visit: Yes Status: Chronic Qualifiers: Hypothyroidism type: unspecified Qualified Code(s): E03.9 - Hypothyroidism , unspecified (8) Acute blood loss anemia Current Visit: Yes Status: Acute (9) Status post total replacement of right hip Current Visit: Yes Status: Acute (10) Pneumonia Current Visit: Yes Status: Suspected Qualifiers: Pneumonia type: due to Pneumococcus Laterality: right Lung location: lower lobe of lung Qualified Code(s): J13 - Pneumonia due to Streptococcus pneumoniae (11) DVT prophylaxis Current Visit: Yes Status: Acute Subjective Interval history: Patient was seen this morning doing well this a.m. Afebrile vital signs stable. Operative extremity: Neurovascularly intact Dressing clean dry and intact Calves nontender Assessment and plan: Continue with postoperative care Hemoglobin 8.0 stable overnight and discharge held by medical team yesterday we will reassess today possible discharge if cleared by medical team. Objective Vital signs: Vital Signs Temp Pulse Resp BP Pulse Ox 10/22/16 02:55 98.1 F 90 18 125/69 95 10/21/16 23:36 98.0 F 102 15 116/64 95 10/21/16 22:28 14 98 10/21/16 20:47 98 10/21/16 20:07 98.9 F 105 14 114/62 98 10/21/16 15:54 98.2 F 95 18 118/69 96 10/21/16 15:45 20 95 10/21/16 11:26 99.2 F 96 20 112/72 95 10/21/16 10:59 18 94 10/21/16 08:00 94 10/21/16 06:44 98.0 F 107 18 119/64 94 Intake and Output 10/21/16 10/21/16 10/22/16 15:59 23:59 07:59 Intake Total 1100 / 1100 1200 / 1200 400 / 400 Output Total 1700 / 1700 100 / 100 200 / 200 Balance -600 / -600 1100 / 1100 200 / 200 Intake: IV Fluids 1000 / 1000 450 / 450 100 / 100 Lactated Ringers 1,000 ML 1000 / 1000 @ 75 mls/hr IVC .[id number] [facility] Rx#:[id number] Ofirmev 1,000 mg/100 ml 1 100 / 100 ,000 mg In 100 ml @ 400 mls/hr IVPB Q6HR PRN Rx#: [id number] Levaquin Premix 500mg/ 100 / 100 100 / 100 100mL 500 mg In 100 ml @ 100 mls/hr IVPB Q24H [facility] Rx#:[id number] Vancocin 1,250 MG In 250 / 250 Dextrose 5% 250 ML @ 166. 667 mls/hr IVPB Q12H [facility] Rx#:[id number] Oral 100 / 100 750 / 750 300 / 300 Output: Urine 1700 / 1700 100 / 100 200 / 200 Other: Meal Lunch Dinner Percent of Meal Consumed 25% 90% # Voids 1 # Bowel Movements 1 Weight 86.636 kg 86.7 kg Patient Weight 10/22/16 23:59 Weight 86.7 kg - Labs CBC & BMP: 10/22/16 05:03 10/22/16 05:03 Labs: Abnormal lab results WBC 13.6 K/mcL (4.3-11.1) H 10/22/16 05:03 RBC 2.90 M/mcL (4.19-5.50) L 10/22/16 05:03 Hgb 8.0 g/dL (12.9-16.9) L 10/22/16 05:03 Hct 25.6 % (37.5-50.1) L 10/22/16 05:03 MCH 27.6 pg (28.0-33.3) L 10/22/16 05:03 MCHC 31.3 g/dL (31.6-35.5) L 10/22/16 05:03 Neutrophils # 10.0 K/mcL (1.6-8.9) H 10/22/16 05:03 Monocytes # 1.5 K/mcL (0.0-1.3) H 10/22/16 05:03 Immature Plt Fraction 7.1 % (1.1-6.1) H 10/20/16 03:24 Carbon Dioxide 35 mEq/L (19-29) H 10/22/16 05:03 Creatinine 0.56 mg/dL (0.72-1.25) L 10/22/16 05:03 Glucose 119 mg/dL (70-99) H 10/22/16 05:03 - VTE Documentation of Mechanical Device: Venous foot pump, device Consult Discharge Plan - Plan Referrals: Romel Fowler MD [Primary Care Provider] - Prescriptions: Levofloxacin [Levaquin] 750 mg PO Q24H #10 tablet
[2016-10-22] MEDS: Aspirin 81 MG TAB.CHEW PO SCH (07:54)
[2016-10-22] MEDS: Multivit/Ca/Min/Fe/FA 1 TAB TABLET PO SCH (07:54)
[2016-10-22] MEDS: predniSONE 20 MG TABLET PO SCH (07:55)
[2016-10-22] MEDS: Ascorbic Acid 500 MG TABLET PO SCH ×2 (07:55→17:14)
[2016-10-22] MEDS: Furosemide 40 MG/4 ML VIAL IVP SCH (07:55)
[2016-10-22] MEDS: Vancomycin 1,250 MG in D5% in Water 250 ML IVPB SCH (09:28)
[2016-10-22] MEDS: Roflumilast [Daliresp] 500 MCG PO SCH (09:29)
[2016-10-22] MEDS: Tiotropium Br/Olodaterol Hcl [Stiolto Respimat Inhal IH SCH (09:29)
--- NOTE | 2016-10-22 13:35 | Internal Med Progress Note ---
<Galen Fontanez - Last Filed: 10/22/16 14:45> Date of Encounter: 10/22/16 Time of Encounter: 13:35 - Assessment and plan (1) Pneumonia Current Visit: Yes Status: Suspected Assessment and plan: Afebrile, continued shortness of breath, and productive cough for the past 3 weeks prior to surgery. Continue Levaquin (day 3), Vancomycin (day 2) due to postop fever, increased white count, and minimal improvement in symptoms. Continue steroids, breathing treatments, expectorant, and incentive spirometry Blood cultures show no growth. Sputum culture negative. We plan discharge tomorrow. Will need 7 days of Levaquin upon discharge. No need for steroids upon discharge Qualifiers: Pneumonia type: due to Pneumococcus Laterality: right Lung location: lower lobe of lung Qualified Code(s): J13 - Pneumonia due to Streptococcus pneumoniae (2) COPD (chronic obstructive pulmonary disease) Current Visit: Yes Status: Acute Assessment and plan: Patient currently requiring 2.5 L oxygen. Wean as tolerated down to 2 L Continue with Levaquin (day 3), ancomycin (day 2), supplemental oxygen, breathing treatments, and expectorant. Completed day 3 of prednisone 40 mg, cautious steroids due to recent surgery and potential for impaired wound healing. No need for steroids upon discharge Qualifiers: COPD type: COPD with acute exacerbation Qualified Code(s): J44.1 - Chronic obstructive pulmonary disease with (acute) exacerbation (3) Postoperative fever Current Visit: Yes Status: Acute Assessment and plan: Postop day 5. Afebrile. CXR shows no atelectasis. UA negative. No calf tenderness. No signs of wound infection. Blood cultures show no growth. Sputum culture negative. Continue Tylenol and monitor (4) Status post total replacement of right hip Current Visit: Yes Status: Acute Assessment and plan: Patient is POD #5 right total hip replacement by Dr. Carr Management per primary team, anticipated discharge tomorrow (5) CHF (congestive heart failure) Current Visit: Yes Status: Chronic Assessment and plan: Chronic CHF present on admission, not in acute exacerbation. BNP level 51, dyspnea on exertion, orthopnea, PND, rales on pulmonary exam, no peripheral edema, continue Lasix, metoprolol, and switched amlodipine to lisinopril. Qualifiers: Congestive heart failure type: unspecified congestive heart failure type Congestive heart failure chronicity: chronic Qualified Code(s): I50.9 - Heart failure, unspecified (6) Hypertension Current Visit: Yes Status: Chronic Assessment and plan: Continue Lasix, metoprolol, switched amlodipine to lisinopril in light of CHF. Qualifiers: Hypertension type: essential hypertension Qualified Code(s): I10 - Essential (primary) hypertension (7) Coronary artery disease Current Visit: Yes Status: Chronic Assessment and plan: Previous 5 vessel bypass. No chest pain at this time Continue patient on ASA, Zocor, and BB Qualifiers: Coronary Disease-Associated Artery/Lesion type: unspecified vessel or lesion type [place] vs. transplanted heart: [place] heart Associated angina: angina presence unspecified Qualified Code(s): I25.10 - Atherosclerotic heart disease of [place] coronary artery without angina pectoris (8) Acute blood loss anemia Current Visit: Yes Status: Acute Assessment and plan: Hemoglobin 8.0 today. Likely related to recent surgery and hemodilution No obvious signs of blood loss upon examination and questioning; no evidence of hematoma around surgical site Status post 2 units pRBCs transfused, continue to monitor CBC (9) Hyponatremia Current Visit: Yes Status: Resolved Assessment and plan: Resolved (10) DVT prophylaxis Current Visit: Yes Status: Acute Assessment and plan: Lovenox. Patient seen and examined, plan discussed with and agreed upon with Dr. Sosa. - Subjective Interval history: Patient sitting comfortably in bed. Patient still on 2.5 L supplemental oxygen , reports baseline home O2 is 2 L oxygen at night. Patient reports dizziness, continued shortness of breath, productive cough, and weakness today. Patient reports ambulating with physical therapy in the [place] and using incentive spirometry. Discharge planning noted per Dr. Carr, will plan discharge tomorrow if patient improved. - Constitutional Vitals: Temp Pulse Resp BP Pulse Ox 97.7 F 91 16 118/68 93 10/22/16 11:23 10/22/16 11:23 10/22/16 11:23 10/22/16 11:23 10/22/16 11:23 General appearance: Present: cooperative, pleasant, no acute distress, answers questions appropriately - Head Head exam: Present: atraumatic, normocephalic - Eye Eye exam: Present: PERRL, conjuntiva pink, sclera anicteric Pupils: Present: PERRL - ENT ENT exam: Present: mucous membranes moist, normal oropharynx - Neck Neck exam general surgery: Present: supple, trachea midline. Absent: lymphadenopathy - Respiratory Respiratory exam: Present: decreased breath sounds, prolonged expiratory phase. Absent: accessory muscle use, chest wall tenderness, rales, respiratory distress, rhonchi, wheezes Additional comments: Decreased rales, 2.5 L O2 via nasal cannula - Cardiovascular Cardiovascular exam: Present: RRR, +S1, +S2. Absent: diastolic murmur, gallop, rubs, systolic murmur - GI/Abdominal GI/Abdominal exam: Present: normal bowel sounds, soft, no peritoneal signs. Absent: distended, tenderness - Extremities Exam Extremities exam: Present: warm, radial pulses palpable and symetrical. Absent : calf tenderness, cyanotic, pedal edema - [place]ison Incision: Present: clean and dry, intact, erythema. Absent: draining, red, swollen, purulent Comments: Right hip - Neurological Exam Neurological exam: Present: CN II-XII intact, oriented X3, no focal deficits. Absent: pronater drift, facial droop, speech deficit - Skin Skin exam: Present: dry, intact, warm Additional comments: Right hip incision C/D/I Internal Medicine: Result - Labs CBC & Chem 7: 10/22/16 05:03 10/22/16 05:03 Labs: Short CBC 10/22/16 Range/Units 05:03 WBC 13.6 H (4.3-11.1) K/mcL Hgb 8.0 L (12.9-16.9) g/dL Hct 25.6 L (37.5-50.1) % Plt Count 143 (140-400) K/mcL Neutrophils # 10.0 H (1.6-8.9) K/mcL BMP 10/22/16 05:03 Sodium 137 Potassium 3.8 Chloride 100 Carbon Dioxide 35 H BUN 10 Creatinine 0.56 L Glucose 119 H Calcium 8.8 - VTE Documentation of Mechanical Device: Venous foot pump, device Consult Discharge Plan - Plan Referrals: Romel Fowler MD [Primary Care Provider] - Prescriptions: Levofloxacin [Levaquin] 750 mg PO Q24H #10 tablet <Jose Sosa P - Last Filed: 10/22/16 20:18> Date of Encounter: 10/22/16 - Constitutional Vitals: Temp Pulse Resp BP Pulse Ox 98.3 F 104 16 116/72 96 10/22/16 20:02 10/22/16 20:02 10/22/16 20:02 10/22/16 20:02 10/22/16 20:02 Internal Medicine: Result - Labs CBC & Chem 7: 10/22/16 05:03 10/22/16 05:03 Labs: Short CBC 10/22/16 Range/Units 05:03 WBC 13.6 H (4.3-11.1) K/mcL Hgb 8.0 L (12.9-16.9) g/dL Hct 25.6 L (37.5-50.1) % Plt Count 143 (140-400) K/mcL Neutrophils # 10.0 H (1.6-8.9) K/mcL BMP 10/22/16 05:03 Sodium 137 Potassium 3.8 Chloride 100 Carbon Dioxide 35 H BUN 10 Creatinine 0.56 L Glucose 119 H Calcium 8.8 - Attending Attestation I examined this patient and my medical decision-making was reviewed with the Resident Physician. I agree with the documented findings, disposition and treatment plan as described except to the extent set forth below. Possible inpatient rehabilitation tomorrow
[2016-10-22] MEDS: Acetaminophen IV 1,000 MG/100 ML INFUS..BTL IVPB PRN (17:14)
[2016-10-22] MEDS: Vancomycin 1,500 MG in D5% in Water 250 ML IVPB SCH (23:42)
[2016-10-23] MEDS: Levofloxacin 500 MG/100 ML 500 MG/100 ML BAG IVPB SCH (02:09)
[2016-10-23] MEDS: *HR* OxyCODONE Immed Rel 5 MG TABLET PO PRN ×3 (02:28→10:55)
[2016-10-23] MEDS: Ipratropium/Albuterol Neb 3 ML IH SCH ×2 (04:32→10:30)
[2016-10-23 05:23] LABS: Hematocrit 26.8 % (37.5-50.1); Hemoglobin 8.2 g/dL (12.9-16.9); Immature Granulocytes % 0.6 % (0-4); Lymphocytes % 19.2 %; Mean Corpuscular HGB Conc 30.6 g/dL (31.6-35.5); Mean Corpuscular Hemoglobin 26.8 pg (28.0-33.3); Mean Corpuscular Volume 87.6 fL (83.0-100.0); Mean Platelet Volume 10.8 fL (9.4-12.4); Platelet Count 179 K/mcL (140-400); Red Blood Count 3.06 M/mcL (4.19-5.50); Red Cell Distribution Width 14.3 % (11.5-14.5); Segmented Neutrophils % 67.2 %
[2016-10-23 05:24] LABS: Basophils % 0.2 %; Eosinophils # 0.1 K/mcL (0.0-0.6); Lymphocytes # 2.7 K/mcL (0.6-4.6); Monocytes # 1.6 K/mcL (0.0-1.3); Monocytes % 11.8 %; Neutrophils # 9.3 K/mcL (1.6-8.9); Nucleated Red Blood Cells 0.1 /100 WBC (0)
[2016-10-23 05:27] LABS: BUN/Creatinine Ratio 16 (6-26); Blood Urea Nitrogen 9 mg/dL (8-26); Calcium 8.7 mg/dL (8.6-10.8); Carbon Dioxide 34 mEq/L (19-29); Chloride 100 mEq/L (98-109); Glucose 113 mg/dL (70-99); Osmolality,Calculated 285 (280-300); Potassium 3.7 mEq/L (3.5-4.5); Sodium 138 mEq/L (136-145); eGFR For African Americans > 60 (> 60); eGFR For Non-African Americans > 60 (> 60)
[2016-10-23] MEDS: *HR* Enoxaparin 30 MG/0.3 ML SYRINGE SQ SCH (06:32)
--- NOTE | 2016-10-23 08:33 | Internal Med Progress Note ---
<Galen Fontanez - Last Filed: 10/23/16 13:35> Date of Encounter: 10/23/16 Time of Encounter: 08:30 - Assessment and plan (1) Pneumonia Status: Suspected Assessment and plan: Afebrile, continued shortness of breath, and productive cough for the past 3 weeks prior to surgery. D/c Levaquin (day 4), Vancomycin (day 3). Continue breathing treatments, expectorant, and incentive spirometry Blood cultures show no growth. Sputum culture negative. Discharge today. No need for steroids upon discharge RX written for Vantin 200mg PO BID for 5 days. Qualifiers: Pneumonia type: due to Pneumococcus Laterality: right Lung location: lower lobe of lung Qualified Code(s): J13 - Pneumonia due to Streptococcus pneumoniae (2) COPD (chronic obstructive pulmonary disease) Status: Acute Assessment and plan: Patient currently requiring 2L oxygen. Continue supplemental oxygen, breathing treatments, and expectorant. Completed day 3 of prednisone 40 mg, cautious steroids due to recent surgery and potential for impaired wound healing. No need for steroids upon discharge Qualifiers: COPD type: COPD with acute exacerbation Qualified Code(s): J44.1 - Chronic obstructive pulmonary disease with (acute) exacerbation (3) Postoperative fever Status: Resolved Assessment and plan: Postop day 6. Afebrile. CXR shows no atelectasis. UA negative. No signs of wound infection. Blood cultures show no growth. Sputum culture negative. 3 points on Wells score indicating High risk for DVT given right calf tenderness , right leg swelling, and recent surgery/immobilization. Ultrasound right lower extremity negative for DVT, will proceed with discharge planning per ortho. (4) Status post total replacement of right hip Status: Acute Assessment and plan: Patient is POD #6 right total hip replacement by Dr. Carr Management per primary team, anticipated discharge today (5) CHF (congestive heart failure) Status: Chronic Assessment and plan: Chronic CHF present on admission, not in acute exacerbation. BNP level 51, dyspnea on exertion, orthopnea, PND, rales on pulmonary exam, no peripheral edema, continue Lasix, metoprolol, and switched amlodipine to lisinopril. Qualifiers: Congestive heart failure type: unspecified congestive heart failure type Congestive heart failure chronicity: chronic Qualified Code(s): I50.9 - Heart failure, unspecified (6) Hypertension Status: Chronic Assessment and plan: Continue Lasix, metoprolol, switched amlodipine to lisinopril in light of CHF. Qualifiers: Hypertension type: essential hypertension Qualified Code(s): I10 - Essential (primary) hypertension (7) Coronary artery disease Status: Chronic Assessment and plan: Previous 5 vessel bypass. No chest pain at this time Continue patient on ASA, Zocor, and BB Qualifiers: Coronary Disease-Associated Artery/Lesion type: unspecified vessel or lesion type [place] vs. transplanted heart: [place] heart Associated angina: angina presence unspecified Qualified Code(s): I25.10 - Atherosclerotic heart disease of [place] coronary artery without angina pectoris (8) Acute blood loss anemia Status: Acute Assessment and plan: Hemoglobin 8.2 today. Likely related to recent surgery and hemodilution No obvious signs of blood loss upon examination and questioning; no evidence of hematoma around surgical site Status post 2 units pRBCs transfused, continue to monitor CBC (9) Hyponatremia Status: Resolved Assessment and plan: Resolved (10) DVT prophylaxis Status: Acute Assessment and plan: 3 points on Wells score indicating High risk for DVT given right calf tenderness , right leg swelling, and recent surgery/immobilization. Ultrasound right lower extremity negative for DVT, will proceed with discharge planning per ortho. On Lovenox. Patient seen and examined, plan discussed with and agreed upon with Dr. Sosa. - Subjective Interval history: Patient sitting comfortably in bed. Patient reports right calf is swollen and tender this morning and his heart rate is racing. Patient back to baseline home O2 is 2 L oxygen. Patient reports ambulating with physical therapy in the [place] and using incentive spirometry. If right lower extremity ultrasound negative for DVT, will discharge today on Vantin for 5 days. - Constitutional Vitals: Temp Pulse Resp BP Pulse Ox 98.4 F 114 17 134/78 93 10/23/16 07:20 10/23/16 07:20 10/23/16 07:20 10/23/16 07:20 10/23/16 07:20 General appearance: Present: cooperative, pleasant, no acute distress, answers questions appropriately - Head Head exam: Present: atraumatic, normocephalic - Eye Eye exam: Present: PERRL, conjuntiva pink, sclera anicteric Pupils: Present: PERRL - ENT ENT exam: Present: mucous membranes moist, normal oropharynx - Neck Neck exam general surgery: Present: supple, trachea midline. Absent: lymphadenopathy - Respiratory Respiratory exam: Present: CTAB. Absent: accessory muscle use, rales, rhonchi, wheezes - Cardiovascular Cardiovascular exam: Present: RRR, +S1, +S2. Absent: diastolic murmur, gallop, rubs, systolic murmur - GI/Abdominal GI/Abdominal exam: Present: normal bowel sounds, soft, no peritoneal signs. Absent: distended, tenderness - Extremities Exam Extremities exam: Present: warm, radial pulses palpable and symetrical. Absent : calf tenderness, cyanotic, pedal edema Additional comments: Positive Homans sign on right /tenderness right calf, right hip bandage in place , C/D/I - Neurological Exam Neurological exam: Present: CN II-XII intact, oriented X3, no focal deficits. Absent: pronater drift, facial droop, speech deficit - Skin Skin exam: Present: dry, intact Internal Medicine: Result - Labs CBC & Chem 7: 10/23/16 04:02 10/23/16 04:02 Labs: Short CBC 10/23/16 Range/Units 04:02 WBC 13.9 H (4.3-11.1) K/mcL Hgb 8.2 L (12.9-16.9) g/dL Hct 26.8 L (37.5-50.1) % Plt Count 179 (140-400) K/mcL Neutrophils # 9.3 H (1.6-8.9) K/mcL BMP 10/23/16 04:02 Sodium 138 Potassium 3.7 Chloride 100 Carbon Dioxide 34 H BUN 9 Creatinine 0.56 L Glucose 113 H Calcium 8.7 - Impressions 10/23/16 11:46 - Vascular Preliminary by Rodo Rasheed Acct Num: [id number] : 1950 Patient Age: 66 RT leg preliminary. RT leg venous appears negative for thrombus. Initialized on 10/23/16 11:46 - END OF NOTE - VTE Documentation of Mechanical Device: Graduated compression elastic hosiery Consult Discharge Plan - Plan Additional Instructions: Discharge Instructions: Total Hip Replacement Please call [facility] ([phone]), your Primary Care Physician, or report to the Emergency Room if you have any of the following symptoms: Nausea, vomiting, fever greater that 101.5, swelling, chest pain, shortness of breath, increased pain/redness/drainage/odor for your incision site, numbness/ tingling, or any other concerning symptoms. ACTIVITY:Weight-bearing as tolerated for 8 weeks with hip dislocation precautions that physical therapy taught you. You may progress as tolerated under the guidance of your physical therapist. You do not need to sleep with a pillow between your legs. You can also seep on the operative side or on your stomach. MEDICATIONS: Upon discharge resume your home medications. Take all the medications as prescribed. Take a stool softener if taking narcotic pain medications. Stool softeners are only effective if you drink enough fluids. Drink 6-8 glass of water or fluids a day, unless this is not allowed for another health problem. Despite using stool softeners, if you haven't had a bowel movement in 3 days, please switch to a gentle laxative. Gentle laxatives are sold over the counter. You should have a bowel movement within 24 hours, if not call the office. You will be discharged from the hospital with a prescription for pain medication. You are encouraged to decrease the use of narcotic pain medication as tolerated. Should you require a refill, please call the office. [facility] prescribes narcotic pain medication for only 4-6 weeks after surgery. If you require pain medication beyond this time period, you may be referred to your Primary Care Physician or to the Pain Clinic for further evaluation. Plan ahead for refills on pain medication as many narcotics either need to be picked up at the office or mailed. It is best to call 48-72 hours in advance of needing a prescription refill so you don't run out of medication. To help control the post-operative pain, you may take NSAIDs (Aleve,Advil, Motrin, ibuprofen, naprosyn) or Tylenol as prescribed on the bottle in addition to the pain medication. ANTICOAGULATION (blood thinners): Continue your Aspirin, Lovenox or Coumadin as prescribed to help prevent a blood clot in the leg or in the lungs. As long as your incision remains dry and you tolerate the NSAIDs (Aleve, Advil, Motrin, Ibuprofen, Naprosyn), it is OK to use the NSAIDS while you are taking your anticoagulation medication. Should your incision start to drain, stop the NSAID and contact our office. Common symptoms of blood clot in the legs include: localized pain, swelling, calf tenderness, redness or discoloration of the skin. Blood clot in the lung symptoms include: shortness of breath, rapid pulse, sweating, and chest pain that worsens with deep breathing, coughing up blood, lightheadedness, feelings of anxiety. If you experience any of these symptoms notify your physician immediately, go to the emergency room, or if having trouble breathing, call 911. WOUND CARE: Leave the dressing on for 7 to 10days. You may change the dressing if it is saturated greater than 50%. Do not get the dressing wet at anytime. Wash your hands with antibacterial soap, rinse and dry prior to any wound care. If you have donna the visiting nurse or rehab facility can remove the stapes 10-14 days after surgery and place steri-strips across the wound. Leave the steri-strips in place until they fall off on their own. You may let water from the shower run on top of the steri-strips. If you do not have a visiting nurse or rehab facility, you will need to return to the office at 10-14 days for the donna to be removed. If you have itching or redness around the dressing call the office. FOLLOW-UP: Please follow up with your surgeon in the orthopedic clinic in 6 weeks from the day of surgery. If you have donna that need to be removed, you will need to come back to the office in 10-14 days from the day of surgery. Referrals: Jerrell Carr MD [Partnered Physician] - 10/30/16 4:00 pm Romel Fowler MD [Primary Care Provider] - Prescriptions: Cefpodoxime Proxetil 200 mg PO BID #10 tablet Levofloxacin [Levaquin] 750 mg PO Q24H #10 tablet Lisinopril [Zestril] 5 mg PO DAILY #30 tablet <Jose Sosa - Last Filed: 10/23/16 18:29> Date of Encounter: 10/23/16 - Constitutional Vitals: Temp Pulse Resp BP Pulse Ox 98.9 F 100 18 136/80 94 10/23/16 11:48 10/23/16 11:48 10/23/16 11:48 10/23/16 11:48 10/23/16 11:48 Internal Medicine: Result - Labs CBC & Chem 7: 10/23/16 04:02 10/23/16 04:02 Labs: Short CBC 10/23/16 Range/Units 04:02 WBC 13.9 H (4.3-11.1) K/mcL Hgb 8.2 L (12.9-16.9) g/dL Hct 26.8 L (37.5-50.1) % Plt Count 179 (140-400) K/mcL Neutrophils # 9.3 H (1.6-8.9) K/mcL BMP 10/23/16 04:02 Sodium 138 Potassium 3.7 Chloride 100 Carbon Dioxide 34 H BUN 9 Creatinine 0.56 L Glucose 113 H Calcium 8.7 - Attending Attestation I examined this patient and my medical decision-making was reviewed with the Resident Physician. I agree with the documented findings, disposition and treatment plan as described except to the extent set forth below.
[2016-10-23] MEDS: Furosemide 40 MG/4 ML VIAL IVP SCH (08:51)
[2016-10-23] MEDS: Roflumilast [Daliresp] 500 MCG PO SCH (08:52)
[2016-10-23] MEDS: Multivit/Ca/Min/Fe/FA 1 TAB TABLET PO SCH (08:52)
[2016-10-23] MEDS: Tiotropium Br/Olodaterol Hcl [Stiolto Respimat Inhal IH SCH (08:52)
[2016-10-23] MEDS: Ascorbic Acid 500 MG TABLET PO SCH (08:52)
[2016-10-23] MEDS: Aspirin 81 MG TAB.CHEW PO SCH (08:52)
--- NOTE | 2016-10-23 09:33 | Orthopedics Progress Note ---
Date of Encounter: 10/23/16 Time of Encounter: 09:33 - Assessment and Plan (1) Arthritis of right hip Current Visit: Yes Status: Chronic (2) CHF (congestive heart failure) Current Visit: Yes Status: Chronic Qualifiers: Congestive heart failure type: unspecified congestive heart failure type Congestive heart failure chronicity: chronic Qualified Code(s): I50.9 - Heart failure, unspecified (3) Hypertension Current Visit: Yes Status: Chronic Qualifiers: Hypertension type: essential hypertension Qualified Code(s): I10 - Essential (primary) hypertension (4) COPD (chronic obstructive pulmonary disease) Current Visit: Yes Status: Acute Qualifiers: COPD type: COPD with acute exacerbation Qualified Code(s): J44.1 - Chronic obstructive pulmonary disease with (acute) exacerbation (5) Hyperlipidemia Current Visit: Yes Status: Chronic Qualifiers: Hyperlipidemia type: unspecified Qualified Code(s): E78.5 - Hyperlipidemia , unspecified (6) Coronary artery disease Current Visit: Yes Status: Chronic Qualifiers: Coronary Disease-Associated Artery/Lesion type: unspecified vessel or lesion type [place] vs. transplanted heart: robinson heart Associated angina: angina presence unspecified Qualified Code(s): I25.10 - Atherosclerotic heart disease of robinson coronary artery without angina pectoris (7) Hypothyroidism Current Visit: Yes Status: Chronic Qualifiers: Hypothyroidism type: unspecified Qualified Code(s): E03.9 - Hypothyroidism , unspecified (8) Acute blood loss anemia Current Visit: Yes Status: Acute (9) Status post total replacement of right hip Current Visit: Yes Status: Acute (10) Pneumonia Current Visit: Yes Status: Suspected Qualifiers: Pneumonia type: due to Pneumococcus Laterality: right Lung location: lower lobe of lung Qualified Code(s): J13 - Pneumonia due to Streptococcus pneumoniae (11) DVT prophylaxis Current Visit: Yes Status: Acute Subjective Interval history: Patient was seen this morning doing well this a.m. Afebrile vital signs stable. Operative extremity: Neurovascularly intact Dressing clean dry and intact Calves nontender Assessment and plan: Continue with postoperative care Hemoglobin 8.2 patient cleared by medicine for discharge today Objective Vital signs: Vital Signs Temp Pulse Resp BP Pulse Ox 10/23/16 07:20 98.4 F 114 17 134/78 93 10/23/16 04:32 16 94 10/23/16 00:29 98.7 F 93 16 122/74 94 10/22/16 21:43 16 94 10/22/16 20:02 98.3 F 104 16 116/72 96 10/22/16 17:26 16 100 10/22/16 14:17 98.2 F 101 16 125/79 92 10/22/16 11:23 97.7 F 91 16 118/68 93 10/22/16 10:42 16 118/68 93 Intake and Output 10/22/16 10/23/16 10/23/16 23:59 07:59 15:59 Intake Total 100 / 100 350 / 350 Output Total 950 / 950 1400 / 1400 Balance -850 / -850 -1050 / -1050 Intake: IV Fluids 100 / 100 350 / 350 Ofirmev 1,000 mg/100 ml 1 100 / 100 ,000 mg In 100 ml @ 400 mls/hr IVPB Q6HR PRN Rx#: [id number] Levaquin Premix 500mg/ 100 / 100 100mL 500 mg In 100 ml @ 100 mls/hr IVPB Q24H [place] Rx#:[id number] Vancocin 1,500 MG In 250 / 250 Dextrose 5% 250 ML @ 166. 667 mls/hr IVPB Q12H [place] Rx#:[id number] Output: Urine 950 / 950 1400 / 1400 Other: Meal Dinner Percent of Meal Consumed 90% Stool Size Small Stool Consistency soft formed Stool Color Brown # Voids 1 # Bowel Movements 1 - Labs CBC & BMP: 10/23/16 04:02 10/23/16 04:02 Labs: Abnormal lab results WBC 13.9 K/mcL (4.3-11.1) H 10/23/16 04:02 RBC 3.06 M/mcL (4.19-5.50) L 10/23/16 04:02 Hgb 8.2 g/dL (12.9-16.9) L 10/23/16 04:02 Hct 26.8 % (37.5-50.1) L 10/23/16 04:02 MCH 26.8 pg (28.0-33.3) L 10/23/16 04:02 MCHC 30.6 g/dL (31.6-35.5) L 10/23/16 04:02 Neutrophils # 9.3 K/mcL (1.6-8.9) H 10/23/16 04:02 Monocytes # 1.6 K/mcL (0.0-1.3) H 10/23/16 04:02 Nucleated RBCs/100 WBC 0.1 /100 WBC (0) H 10/23/16 04:02 Immature Plt Fraction 7.1 % (1.1-6.1) H 10/20/16 03:24 Carbon Dioxide 34 mEq/L (19-29) H 10/23/16 04:02 Creatinine 0.56 mg/dL (0.72-1.25) L 10/23/16 04:02 Glucose 113 mg/dL (70-99) H 10/23/16 04:02 - VTE Documentation of Mechanical Device: Venous foot pump, device Consult Discharge Plan - Plan Additional Instructions: Discharge Instructions: Total Hip Replacement Please call [facility] ([phone]), your Primary Care Physician, or report to the Emergency Room if you have any of the following symptoms: Nausea, vomiting, fever greater that 101.5, swelling, chest pain, shortness of breath, increased pain/redness/drainage/odor for your incision site, numbness/ tingling, or any other concerning symptoms. ACTIVITY:Weight-bearing as tolerated for 8 weeks with hip dislocation precautions that physical therapy taught you. You may progress as tolerated under the guidance of your physical therapist. You do not need to sleep with a pillow between your legs. You can also seep on the operative side or on your stomach. MEDICATIONS: Upon discharge resume your home medications. Take all the medications as prescribed. Take a stool softener if taking narcotic pain medications. Stool softeners are only effective if you drink enough fluids. Drink 6-8 glass of water or fluids a day, unless this is not allowed for another health problem. Despite using stool softeners, if you haven't had a bowel movement in 3 days, please switch to a gentle laxative. Gentle laxatives are sold over the counter. You should have a bowel movement within 24 hours, if not call the office. You will be discharged from the hospital with a prescription for pain medication. You are encouraged to decrease the use of narcotic pain medication as tolerated. Should you require a refill, please call the office. [facility] prescribes narcotic pain medication for only 4-6 weeks after surgery. If you require pain medication beyond this time period, you may be referred to your Primary Care Physician or to the Pain Clinic for further evaluation. Plan ahead for refills on pain medication as many narcotics either need to be picked up at the office or mailed. It is best to call 48-72 hours in advance of needing a prescription refill so you don't run out of medication. To help control the post-operative pain, you may take NSAIDs (Aleve,Advil, Motrin, ibuprofen, naprosyn) or Tylenol as prescribed on the bottle in addition to the pain medication. ANTICOAGULATION (blood thinners): Continue your Aspirin, Lovenox or Coumadin as prescribed to help prevent a blood clot in the leg or in the lungs. As long as your incision remains dry and you tolerate the NSAIDs (Aleve, Advil, Motrin, Ibuprofen, Naprosyn), it is OK to use the NSAIDS while you are taking your anticoagulation medication. Should your incision start to drain, stop the NSAID and contact our office. Common symptoms of blood clot in the legs include: localized pain, swelling, calf tenderness, redness or discoloration of the skin. Blood clot in the lung symptoms include: shortness of breath, rapid pulse, sweating, and chest pain that worsens with deep breathing, coughing up blood, lightheadedness, feelings of anxiety. If you experience any of these symptoms notify your physician immediately, go to the emergency room, or if having trouble breathing, call 911. WOUND CARE: Leave the dressing on for 7 to 10days. You may change the dressing if it is saturated greater than 50%. Do not get the dressing wet at anytime. Wash your hands with antibacterial soap, rinse and dry prior to any wound care. If you have donna the visiting nurse or rehab facility can remove the stapes 10-14 days after surgery and place steri-strips across the wound. Leave the steri-strips in place until they fall off on their own. You may let water from the shower run on top of the steri-strips. If you do not have a visiting nurse or rehab facility, you will need to return to the office at 10-14 days for the donna to be removed. If you have itching or redness around the dressing call the office. FOLLOW-UP: Please follow up with your surgeon in the orthopedic clinic in 6 weeks from the day of surgery. If you have donna that need to be removed, you will need to come back to the office in 10-14 days from the day of surgery. Referrals: Jerrell Carr MD [Partnered Physician] - 10/30/16 4:00 pm Romel Fowler MD [Primary Care Provider] - Prescriptions: Cefpodoxime Proxetil 200 mg PO BID #10 tablet Levofloxacin [Levaquin] 750 mg PO Q24H #10 tablet Lisinopril [Zestril] 5 mg PO DAILY #30 tablet
--- NOTE | 2016-10-23 11:23 | Event Note ---
Date of Encounter: 10/23/16 Time of Encounter: 11:51 PCR - POD#5 - Right THR Patient seen at bedside. Doppler today for calf pain - negative for dvt. Pt had pneumonia - on treatment for this Pain control: adequate PT: participating,difficulty with ambulation secondary to calf pain - states similar to prior to surgery - will start Lidoderm patch for this. All questions and concerns addressed. Educated on use of incentive spirometer, ambulation, and hydration. Patient educated on post-operative restrictions and care. Addressed: No further concerns D/C plan:. PT recommending rehab - patient refusing - states has people at home to help including ex-spouse and daughter. Patient desires home. Camilla at bedside to discuss possible rehab - patient electing home health - Camilla to set up [facility].
[2016-10-23 11:50] VITALS: BP 136/80
[2016-10-23] MEDS: Vancomycin 1,500 MG in D5% in Water 250 ML IVPB SCH (13:08)
[2016-10-23] MEDS ORDERED: Aminoglycoside Consult 1 EACH MC ONE (14:19)
--- NOTE | 2016-10-24 13:27 | Venous Imaging Report ---
LE Venous Duplex Patient Name:Sandro Billings Order Number:[id number] Procedure Date:10/23/2016 Date:9Age:66 yrs Gender:Male Location:[facility] Room #: 3NE20 Band Instrument Repairer:Lizbeth Rasheed RVT, RDCS Referring MD:Galen Fontanez spanish instructor:Romel Fowler MD Reading MD:Darrius Corbin MD , FACS Primary Indications:RLE calf tenderness, swelling, recent surgery Secondary Indications: Risk Factors Yes/No Hx of DVT No Impressions: Right lower extremity: normal superficial and deep exam. Left lower extremity: normal contralateral exam. Recommendations: Test completed on 10/23/2016 at 12:07:20 pm. Critical findings reported to Paulette on 3NE to relay message by phone at 12:07:40 pm on 10/23/2016 by Lizbeth Rasheed RVT, RDCS. Findings Venous Duplex Results: Right: Venous imaging of the lower extremity reveals full patency and normal vessel compressibility of the right distal iliac, right common femoral, right superficial femoral, right popliteal, right posterior tibial, right peroneal, right saphenofemoral junction, right great saphenous and right lesser saphenous. Doppler signals in the evaluated veins were normal. Left: Venous imaging of the lower extremity reveals full patency and normal vessel compressibility of the left common femoral. Doppler signals in the evaluated veins were normal. Lower Extremity Venous Duplex Side Vein Compress Spontaneous Flow Augment Diameter (cm) Depth (cm) Right Distal Iliac Normal Yes Phasic Yes Right Common Femoral Normal Yes Phasic Yes Right Superficial Femoral Normal Yes Phasic Yes Right Popliteal Normal Yes Phasic Yes Right Posterior Tibial Normal Yes Phasic Yes Right Peroneal Normal Yes Phasic Yes Right Saphenofemoral Junction Normal Yes Phasic Yes Right Great Saphenous Normal Yes Phasic Yes Right Lesser Saphenous Normal Yes Phasic Yes Left Common Femoral Normal Yes Phasic Yes Updated by Darrius Corbin MD, FACS on 10/24/2016 1:22:04 PM Darrius Corbin MD electronically signed on 10/24/2016 1:22:22 PM with status of Final
== END 2016-10-23 14:20 | disposition home health service (06) | DRG 469 ==
LOC: SAMDAY 09:24 → 3NENU 17:34
PROVIDERS: ADMIT Orthopaedic Surgery; ATTEND Orthopaedic Surgery

== ENCOUNTER 2016-10-23 17:46 | Inpatient (IN) ==
[2016-10-23] MEDS ORDERED: Ipratropium/Albuterol Neb 3 ML IH ONE ×2 (17:50→19:16)
[2016-10-23 18:25] LABS: Basophils # 0.1 K/mcL (0.0-0.2); Basophils % 0.3 %; Eosinophils # 0.7 K/mcL (0.0-0.6); Eosinophils % 4.6 %; Hematocrit 29.3 % (37.5-50.1); Hemoglobin 9.2 g/dL (12.9-16.9); Immature Granulocytes % 0.7 % (0-4); Lymphocytes # 2.6 K/mcL (0.6-4.6); Lymphocytes % 17.9 %; Mean Corpuscular HGB Conc 31.4 g/dL (31.6-35.5); Mean Corpuscular Hemoglobin 27.7 pg (28.0-33.3); Mean Corpuscular Volume 88.3 fL (83.0-100.0); Mean Platelet Volume 10.3 fL (9.4-12.4); Monocytes # 1.6 K/mcL (0.0-1.3); Monocytes % 10.9 %; Neutrophils # 9.6 K/mcL (1.6-8.9); Nucleated Red Blood Cells 0.4 /100 WBC (0); Platelet Count 208 K/mcL (140-400); Red Blood Count 3.32 M/mcL (4.19-5.50); Red Cell Distribution Width 14.4 % (11.5-14.5); Segmented Neutrophils % 65.6 %
[2016-10-23 18:37] LABS: BUN/Creatinine Ratio 13 (6-26); Blood Urea Nitrogen 9 mg/dL (8-26); Carbon Dioxide 34 mEq/L (19-29); Chloride 96 mEq/L (98-109); Glucose 111 mg/dL (70-99); Osmolality,Calculated 281 (280-300); Potassium 3.4 mEq/L (3.5-4.5); Sodium 136 mEq/L (136-145); eGFR For African Americans > 60 (> 60); eGFR For Non-African Americans > 60 (> 60)
--- NOTE | 2016-10-23 19:12 | Emergency Department Note ---
Disposition Clinical Impression: COPD exacerbation Pneumonia Qualifiers: Pneumonia type: due to unspecified organism Laterality: unspecified laterality Lung location: unspecified part of lung Qualified Code(s): J18.9 - Pneumonia, unspecified organism Disposition: Admitted As Inpatient Condition: Fair Referrals: Romel Fowler MD [Primary Care Provider] - Forms: ED Satisfaction Letter SOB HPI - General Chief Complaint: ED Shortness of Breath/Dyspnea Stated Complaint: CARON Time Seen by Provider: 10/23/16 17:48 Source: patient, EMS Limitations: no limitations Nursing Notes Reviewed: Yes Vital Signs Reviewed: Yes - History of Present Illness Patient with history of COPD recently admitted for COPD exacerbation and pneumonia and was discharged earlier today. Patient states that he went home and became short of breath. Patient put on his home O2 that he normally wears at night and it did not significantly help him. Squad was called. Patient's symptoms resolve after 5 minutes of air conditioning. Patient does have expiratory wheezing. Patient states that overall he feels better but is still concerned about his exertional status. Patient was initially offered rehabilitation but did not want to go to [place]. They decided to do home health. This may need to be revisited as the patient did not do well. - Related Data Home Medications Medication Instructions Recorded Confirmed Albuterol Sulfate [Albuterol 2 puff IH Q4HR PRN 03/14/16 10/17/16 Inhaler] Aspirin 81 mg PO DAILY 03/14/16 10/17/16 EPINEPHrine [Epipen] 0.3 mg IM ONCE PRN 03/14/16 10/17/16 Ergocalciferol (VITAMIN D2) 50,000 unit PO MO 03/14/16 10/17/16 [Vitamin D2] Ipratropium/Albuterol Neb [Duoneb] 3 ml IH Q6HR PRN 03/14/16 10/17/16 Levothyroxine [Synthroid] 50 mcg PO 0630 03/14/16 10/17/16 Metoprolol [Lopressor] 50 mg PO BID 03/14/16 10/17/16 Potassium Chloride [Klor-Con 10] 10 meq PO DAILY 03/14/16 10/17/16 Roflumilast [Daliresp] 500 mcg PO DAILY 03/14/16 10/17/16 Sertraline [Zoloft] 50 mg PO DAILY 03/14/16 10/17/16 Simvastatin [Zocor] 40 mg PO HS 03/14/16 10/17/16 Omeprazole [PriLOSEC] 20 mg PO DAILY PRN 10/17/16 10/17/16 Tiotropium Br/Olodaterol HCl 2 puff IH DAILY 10/17/16 10/17/16 [Stiolto Respimat Inhal [place]] Previous Rx's Medication Instructions Recorded Aspirin Enteric Coated [Aspirin EC] 325 mg PO BID #20 tablet. 10/17/16 OxyCODONE Immed Rel [Roxicodone 5 5 mg PO Q4HR PRN #24 tablet 10/17/16 MG] Levofloxacin [Levaquin] 750 mg PO Q24H #10 tablet 10/21/16 Cefpodoxime Proxetil 200 mg PO BID #10 tablet 10/23/16 Lisinopril [Zestril] 5 mg PO DAILY #30 tablet 10/23/16 Allergies Allergy/AdvReac Type Severity Reaction Status Date / Time naproxen [From Naprosyn] Allergy See Verified 10/23/16 17:55 Comments Penicillins [PCN] Allergy See Verified 10/23/16 17:55 Comments Trimethobenzamide Allergy See Verified 10/23/16 17:55 Comments atorvastatin [From Lipitor] AdvReac See Verified 10/23/16 17:55 Comments Review of Systems: CONSTITUTIONAL: No weight loss, fever, chills, weakness or fatigue. HEENT: Eyes: No visual changes. Ears, Nose, Throat: No hearing loss, difficulty talking or unable to swallow. SKIN: No rash or itching. CARDIOVASCULAR: No chest pain, chest pressure or chest discomfort. No palpitations or edema. RESPIRATORY: Shortness of breath GASTROINTESTINAL: No anorexia, nausea, vomiting or diarrhea. No abdominal pain or blood. GENITOURINARY: No burning on urination or hematuria. NEUROLOGICAL: No headache, dizziness, syncope, paralysis, ataxia, numbness or tingling in the extremities. No change in bowel or bladder control. MUSCULOSKELETAL: No muscle pain, back pain, joint pain or stiffness. Past Medical History - Past Medical History Medical history: Reports: arthritis, CHF, COPD, hyperlipidemia, hypertension, myocardial infarction, thyroid disease, other Psychiatric history: Reports: depression - Social History Smoking Status: Former smoker Smokeless Tobacco Status: No Alcohol use: Reports: none Drug use: Reports: none Physical Exam General appearance: NAD, conversant Eyes: anicteric sclerae, moist conjunctivae; PERRL HENT: Atraumatic; oropharynx clear with moist mucous membranes and no mucosal ulcerations Neck: Normal inspection; Trachea midline; FROM, supple Lungs: Expiratory wheezing throughout CV: RRR, no MRGs Abdomen: Soft, non-tender; no rebound or gaurding Extremities: No peripheral edema or extremity lymphadenopathy Skin: Normal temperature; no rash, ulcers or lesions Psych: Appropriate mood and affect Neuro: alert and oriented to person, place and time - General Limitations: no limitations General appearance: alert Course - Reevaluation(s) Reevaluation #1: Patient evaluated after DuoNeb's with a pulse ox of 86% with good waveform sitting on the edge of bed. Patient has concern about going home in regards to his exertional capacity as he normally does not wear oxygen around his house. Patient will be brought in for further COPD and pneumonia management as well as possible rehabilitation placement. With the patient's past medical history CHF we will be gentle with initial fluids. Blood cultures not drawn secondary to patient's recent blood cultures negative prior to antibiotics and he is now multiple days post antibiotics without fevers. Patient did receive antibiotics at 2 AM this morning. Patient has received antibiotics within the last 24 hours - Consultations Consultation #1: [place] the hospitalist Dr. Sood. Patient accepted for admission. Vital Signs Temperature 98.3 F 10/23/16 17:48 Pulse Rate 102 10/23/16 17:48 Respiratory Rate 18 10/23/16 17:48 Blood Pressure 128/85 10/23/16 17:48 O2 Sat by Pulse Oximetry 94 10/23/16 17:48 Temperature 98.3 F 10/23/16 17:48 Pulse Rate 103 10/23/16 19:17 Respiratory Rate 18 10/23/16 19:17 Blood Pressure 144/89 10/23/16 19:17 O2 Sat by Pulse Oximetry 94 10/23/16 19:17 Oxygen Delivery Oxygen Delivery Nasal Cannula Shortness of Breath/Dyspnea - Medical Records Medical records reviewed: Yes I reviewed the patient's medical records. - Lab Data Lab results reviewed: Yes I reviewed the patient's lab results. Result diagrams: 10/23/16 18:15 10/23/16 18:15 Lab Results 07/10/23/16 10/23/16 Range/Units 18:15 18:15 18:15 WBC 14.7 H (4.3-11.1) K/mcL RBC 3.32 L (4.19-5.50) M/mcL Hgb 9.2 L (12.9-16.9) g/dL Hct 29.3 L (37.5-50.1) % MCV 88.3 (83.0-100.0) fL MCH 27.7 L (28.0-33.3) pg MCHC 31.4 L (31.6-35.5) g/dL RDW 14.4 (11.5-14.5) % Plt Count 208 (140-400) K/mcL MPV 10.3 (9.4-12.4) fL Immature Gran % 0.7 (0-4) % Seg Neutrophils % 65.6 % Lymphocytes % 17.9 % Monocytes % 10.9 % Eosinophils % 4.6 % Basophils % 0.3 % Neutrophils # 9.6 H (1.6-8.9) K/mcL Lymphocytes # 2.6 (0.6-4.6) K/mcL Monocytes # 1.6 H (0.0-1.3) K/mcL Eosinophils # 0.7 H (0.0-0.6) K/mcL Basophils # 0.1 (0.0-0.2) K/mcL Nucleated RBCs/100 WBC 0.4 H (0) /100 WBC Sodium 136 (136-145) mEq/L Potassium 3.4 L (3.5-4.5) mEq/L Chloride 96 L (98-109) mEq/L Carbon Dioxide 34 H (19-29) mEq/L BUN 9 (8-26) mg/dL Creatinine 0.67 L (0.72-1.25) mg/dL Est GFR ( Amer) > 60 (> 60) Est GFR (Non-Af Amer) > 60 (> 60) BUN/Creatinine Ratio 13 (6-26) Glucose 111 H (70-99) mg/dL Calculated Osmolality 281 (280-300) Calcium 9.0 (8.6-10.8) mg/dL Troponin I 0.01 (0-0.03) ng/mL B-Natriuretic Peptide (0-100) pg/mL 10/23/16 Range/Units 18:15 WBC (4.3-11.1) K/mcL RBC (4.19-5.50) M/mcL Hgb (12.9-16.9) g/dL Hct (37.5-50.1) % MCV (83.0-100.0) fL MCH (28.0-33.3) pg MCHC (31.6-35.5) g/dL RDW (11.5-14.5) % Plt Count (140-400) K/mcL MPV (9.4-12.4) fL Immature Gran % (0-4) % Seg Neutrophils % % Lymphocytes % % Monocytes % % Eosinophils % % Basophils % % Neutrophils # (1.6-8.9) K/mcL Lymphocytes # (0.6-4.6) K/mcL Monocytes # (0.0-1.3) K/mcL Eosinophils # (0.0-0.6) K/mcL Basophils # (0.0-0.2) K/mcL Nucleated RBCs/100 WBC (0) /100 WBC Sodium (136-145) mEq/L Potassium (3.5-4.5) mEq/L Chloride (98-109) mEq/L Carbon Dioxide (19-29) mEq/L BUN (8-26) mg/dL Creatinine (0.72-1.25) mg/dL Est GFR ( Amer) (> 60) Est GFR (Non-Af Amer) (> 60) BUN/Creatinine Ratio (6-26) Glucose (70-99) mg/dL Calculated Osmolality (280-300) Calcium (8.6-10.8) mg/dL Troponin I (0-0.03) ng/mL B-Natriuretic Peptide 49 (0-100) pg/mL - Radiology Data Radiology results reviewed: Yes I reviewed the patient's radiology results. - EKG Data EKG attestation: Yes I reviewed and interpreted this EKG. EKG results narrative: EKG shows sinus tachycardia with a ventricular rate of 107.PR173. QRS 90. [id number]. No significant ST elevation or depression. EKG unchanged from prior of 03/14/16.
--- NOTE | 2016-10-23 19:14 | Emergency Department Note ---
START Narrative - START START: I examined this patient and my medical decision-making was reviewed with the Resident Physician. I agree with the documented findings, disposition and treatment plan as described except to the extent set forth below. Pt to ED with dspnea on exhertion. Was just dc from the hospital earlier today. Was here 6 days for a hip surgery and had a post-op course complicated by pneumonia. Currently on antibiotics. No fever. No chest pain. On exam he is satting well on oxygen. Lungs diminished. Plan. CXR with cardiac workup. Labs and CXR reviewed. PT road-tested. Oxygen saturation 86% sitting on the side of the bed on oxygen. Will admit. 30 minutes of critical care exclusive of separately billable procedures.
--- NOTE | 2016-10-23 19:15 | Emergency Department Note ---
Disposition Clinical Impression: COPD exacerbation Forms: ED Satisfaction Letter General Adult HPI - General Chief complaint: ED Shortness of Breath/Dyspnea Stated complaint: CARON Time Seen by Provider: 10/23/16 17:48 Source: patient, EMS Limitations: no limitations - History of Present Illness HPI Narrative: This patient was signed out by the primary provider. Please see their history and physical for complete documentation. Pain Scale: 9 - Related Data Home Medications Medication Instructions Recorded Confirmed Albuterol Sulfate [Albuterol 2 puff IH Q4HR PRN 03/14/16 10/17/16 Inhaler] Aspirin 81 mg PO DAILY 03/14/16 10/17/16 EPINEPHrine [Epipen] 0.3 mg IM ONCE PRN 03/14/16 10/17/16 Ergocalciferol (VITAMIN D2) 50,000 unit PO MO 03/14/16 10/17/16 [Vitamin D2] Ipratropium/Albuterol Neb [Duoneb] 3 ml IH Q6HR PRN 03/14/16 10/17/16 Levothyroxine [Synthroid] 50 mcg PO 0630 03/14/16 10/17/16 Metoprolol [Lopressor] 50 mg PO BID 03/14/16 10/17/16 Potassium Chloride [Klor-Con 10] 10 meq PO DAILY 03/14/16 10/17/16 Roflumilast [Daliresp] 500 mcg PO DAILY 03/14/16 10/17/16 Sertraline [Zoloft] 50 mg PO DAILY 03/14/16 10/17/16 Simvastatin [Zocor] 40 mg PO HS 03/14/16 10/17/16 Omeprazole [PriLOSEC] 20 mg PO DAILY PRN 10/17/16 10/17/16 Tiotropium Br/Olodaterol HCl 2 puff IH DAILY 10/17/16 10/17/16 [Stiolto Respimat Inhal [place]] Previous Rx's Medication Instructions Recorded Aspirin Enteric Coated [Aspirin EC] 325 mg PO BID #20 tablet. 10/17/16 OxyCODONE Immed Rel [Roxicodone 5 5 mg PO Q4HR PRN #24 tablet 10/17/16 MG] Levofloxacin [Levaquin] 750 mg PO Q24H #10 tablet 10/21/16 Cefpodoxime Proxetil 200 mg PO BID #10 tablet 10/23/16 Lisinopril [Zestril] 5 mg PO DAILY #30 tablet 10/23/16 Allergies Allergy/AdvReac Type Severity Reaction Status Date / Time naproxen [From Naprosyn] Allergy See Verified 10/23/16 17:55 Comments Penicillins [PCN] Allergy See Verified 10/23/16 17:55 Comments Trimethobenzamide Allergy See Verified 10/23/16 17:55 Comments atorvastatin [From Lipitor] AdvReac See Verified 10/23/16 17:55 Comments Past Medical History - Past Medical History Medical history: Reports: arthritis, CHF, COPD, hyperlipidemia, hypertension, myocardial infarction, thyroid disease, other Psychiatric history: Reports: depression - Social History Smoking Status: Former smoker Smokeless Tobacco Status: No Alcohol use: Reports: none Drug use: Reports: none Physical Exam - General Limitations: no limitations General appearance: alert Course Vital Signs Temperature 98.3 F 10/23/16 17:48 Pulse Rate 102 10/23/16 17:48 Respiratory Rate 18 10/23/16 17:48 Blood Pressure 128/85 10/23/16 17:48 O2 Sat by Pulse Oximetry 94 10/23/16 17:48 Temperature 98.3 F 10/23/16 17:48 Pulse Rate 100 10/23/16 18:20 Respiratory Rate 20 10/23/16 18:46 Blood Pressure 128/78 10/23/16 18:20 O2 Sat by Pulse Oximetry 100 10/23/16 18:46 Oxygen Delivery Oxygen Delivery Nasal Cannula Medical Decision Making - Lab Data Result diagrams: 10/23/16 18:15 10/23/16 18:15 Lab Results 10/23/16 10/23/16 10/23/16 Range/Units 18:15 18:15 18:15 WBC 14.7 H (4.3-11.1) K/mcL RBC 3.32 L (4.19-5.50) M/mcL Hgb 9.2 L (12.9-16.9) g/dL Hct 29.3 L (37.5-50.1) % MCV 88.3 (83.0-100.0) fL MCH 27.7 L (28.0-33.3) pg MCHC 31.4 L (31.6-35.5) g/dL RDW 14.4 (11.5-14.5) % Plt Count 208 (140-400) K/mcL MPV 10.3 (9.4-12.4) fL Immature Gran % 0.7 (0-4) % Seg Neutrophils % 65.6 % Lymphocytes % 17.9 % Monocytes % 10.9 % Eosinophils % 4.6 % Basophils % 0.3 % Neutrophils # 9.6 H (1.6-8.9) K/mcL Lymphocytes # 2.6 (0.6-4.6) K/mcL Monocytes # 1.6 H (0.0-1.3) K/mcL Eosinophils # 0.7 H (0.0-0.6) K/mcL Basophils # 0.1 (0.0-0.2) K/mcL Nucleated RBCs/100 WBC 0.4 H (0) /100 WBC Sodium 136 (136-145) mEq/L Potassium 3.4 L (3.5-4.5) mEq/L Chloride 96 L (98-109) mEq/L Carbon Dioxide 34 H (19-29) mEq/L BUN 9 (8-26) mg/dL Creatinine 0.67 L (0.72-1.25) mg/dL Est GFR ( Amer) > 60 (> 60) Est GFR (Non-Af Amer) > 60 (> 60) BUN/Creatinine Ratio 13 (6-26) Glucose 111 H (70-99) mg/dL Calculated Osmolality 281 (280-300) Calcium 9.0 (8.6-10.8) mg/dL Troponin I 0.01 (0-0.03) ng/mL B-Natriuretic Peptide (0-100) pg/mL 10/23/16 Range/Units 18:15 WBC (4.3-11.1) K/mcL RBC (4.19-5.50) M/mcL Hgb (12.9-16.9) g/dL Hct (37.5-50.1) % MCV (83.0-100.0) fL MCH (28.0-33.3) pg MCHC (31.6-35.5) g/dL RDW (11.5-14.5) % Plt Count (140-400) K/mcL MPV (9.4-12.4) fL Immature Gran % (0-4) % Seg Neutrophils % % Lymphocytes % % Monocytes % % Eosinophils % % Basophils % % Neutrophils # (1.6-8.9) K/mcL Lymphocytes # (0.6-4.6) K/mcL Monocytes # (0.0-1.3) K/mcL Eosinophils # (0.0-0.6) K/mcL Basophils # (0.0-0.2) K/mcL Nucleated RBCs/100 WBC (0) /100 WBC Sodium (136-145) mEq/L Potassium (3.5-4.5) mEq/L Chloride (98-109) mEq/L Carbon Dioxide (19-29) mEq/L BUN (8-26) mg/dL Creatinine (0.72-1.25) mg/dL Est GFR ( Amer) (> 60) Est GFR (Non-Af Amer) (> 60) BUN/Creatinine Ratio (6-26) Glucose (70-99) mg/dL Calculated Osmolality (280-300) Calcium (8.6-10.8) mg/dL Troponin I (0-0.03) ng/mL B-Natriuretic Peptide 49 (0-100) pg/mL
[2016-10-23] MEDS ORDERED: methylPREDNISolone 125 MG/2 ML VIAL IVP ONE (19:16)
--- NOTE | 2016-10-23 20:47 | Internal Med History&Physical ---
Date of Encounter: 10/23/16 Time of Encounter: 20:47 Assessment and Plan (1) Sepsis Current visit: Yes Status: Acute Pt presents with signs and symptoms concerning for an infectious process, known to have pneumonia and also meets SIRS criteria will do blood cultures, sputum Gram stain and culture, urine strep and legionella will do IV levofloxacin whilst we follow cultures, maintain MAP >65mmHg with aggressive fluid resuscitation will admit for closer monitoring and management Qualifiers: Sepsis type: Streptococcus, unspecified Qualified Code(s): A40.9 - Streptococcal sepsis, unspecified; A40 - Streptococcal sepsis (2) Pneumonia Current visit: Yes Status: Acute per sepsis section Qualifiers: Pneumonia type: due to unspecified organism Laterality: right Lung location: lower lobe of lung Qualified Code(s): J18.1 - Lobar pneumonia, unspecified organism (3) Physical deconditioning Current visit: Yes Status: Acute patient is extremely deconditioned and cannot even move around in bed without assistance, i impressed upon him the need for acute rehab prior to going home and he was open to the idea, we will get PT/OT to weigh in as before (4) COPD exacerbation Current visit: Yes Status: Acute most likely from the pneumonia, will do nebs, already on Abx, no need for steroids (5) Hypokalemia Current visit: Yes Status: Acute may be related to poor intake vs cellular shifts, will replace and follow BMP (6) Hypertension Current visit: Yes Status: Chronic will continue home antihypertensives whilst monitoring BP Qualifiers: Hypertension type: essential hypertension Qualified Code(s): I10 - Essential (primary) hypertension (7) Hypothyroidism Current visit: Yes Status: Chronic will continue home dose of synthroid Qualifiers: Hypothyroidism type: acquired Qualified Code(s): E03.9 - Hypothyroidism, unspecified (8) Lower extremity edema Current visit: Yes Status: Acute isolated to the right lower extremity, per pt a doppler was performed on that extremity that was unremarkable, could not see any report, will follow up ion that report Internal Medicine - H&P: HPI Chief complaint: shortness of breath Admitted From: Emergency Dept Plans for Post Hospital Care: Home History of present illness: Mr. Billings is a 66 year old male with a hx of advanced COPD was seen in the ER today with worsening shortness of breath. He recently underwent right total hip replacement by Dr. Carr on October 17, within 24 hours of the procedure he had increased cough with sputum production and nurse reported that he appeared to be short of breath more than baseline. Chest x-ray performed at the time showed possible right sided consolidation. He was also noted to have a fever recorded at 101. He was treated for pneumonia and discharged home today on cefpodoxime and levofloxacin tablets after he had declined rehab placement only to return to the ER via [facility] for worsening shortness and breath and exertional dyspnea. He apparently was ambulating in the hallway at home and became acutely dyspneic and could not breathe, family placed him on 3L/min of oxygen and squad was called. PAST MEDICAL HISTORY HTN CAD s/p CABG Dyslipidemia Chronic hip pain Advanced COPD Hyperthyroidism CHF Shoulder pain Degenerative joint disease Osteoarthritis bilateral hip and shoulders Depression Diverticulitis PAST SURGICAL HISTORY Bilateral carpal tunnel release surgery bilateral cataract surgery Lung surgery Right inguinal hernia repair with mesh Left inguinal hernia repair placement of right temporary pain pump Laminectomy CABG Bilateral rotator cuff repair Right total hip replacement SOCIAL HISTORY History of smoking cigarettes, about 1/2 ppd for about 25 years but quit >10 years ago, FAMILY HISTORY Father is , he had HTN an heart disease, mother is and had HTN and heart problems, sister has HTN, Past Med Surg Social Fam HX - Past Medical History Medical history: arthritis, CHF, COPD, hyperlipidemia, hypertension, myocardial infarction, thyroid disease, other Psychiatric history: depression - Social History Smoking Status: Former smoker Smokeless Tobacco Status: No Alcohol use: none Drug use: none - Family History Mother Hx Family Cardiac Disorders: Yes ([place]) Internal Medicine - H&P: Meds Albuterol Sulfate [Albuterol Inhaler] 2 puff IH Q4HR PRN 03/14/16 [History] Aspirin 81 mg PO DAILY 03/14/16 [History] EPINEPHrine [Epipen] 0.3 mg IM ONCE PRN 03/14/16 [History] Ergocalciferol (VITAMIN D2) [Vitamin D2] 50,000 unit PO MO 03/14/16 [History] Ipratropium/Albuterol Neb [Duoneb] 3 ml IH Q6HR PRN 03/14/16 [History] Levothyroxine [Synthroid] 50 mcg PO 0630 03/14/16 [History] Metoprolol [Lopressor] 50 mg PO BID 03/14/16 [History] Potassium Chloride [Klor-Con 10] 10 meq PO DAILY 03/14/16 [History] Roflumilast [Daliresp] 500 mcg PO DAILY 03/14/16 [History] Sertraline [Zoloft] 50 mg PO DAILY 03/14/16 [History] Simvastatin [Zocor] 40 mg PO HS 03/14/16 [History] Aspirin Enteric Coated [Aspirin EC] 325 mg PO BID #20 tablet. 10/17/16 [Rx] Omeprazole [PriLOSEC] 20 mg PO DAILY PRN 10/17/16 [History] OxyCODONE Immed Rel [Roxicodone 5 MG] 5 mg PO Q4HR PRN #24 tablet 10/17/16 [Rx] Tiotropium Br/Olodaterol HCl [Stiolto Respimat Inhal [place]] 2 puff IH DAILY [History] Levofloxacin [Levaquin] 750 mg PO Q24H #10 tablet 10/21/16 [Rx] Cefpodoxime Proxetil 200 mg PO BID #10 tablet 10/23/16 [Rx] Lisinopril [Zestril] 5 mg PO DAILY #30 tablet 10/23/16 [Rx] Allergies naproxen [From Naprosyn] Allergy (Verified 10/23/16 17:55) See Comments swelling and breathing difficulty Penicillins [PCN] Allergy (Verified 10/23/16 17:55) See Comments swelling Trimethobenzamide Allergy (Verified 10/23/16 17:55) See Comments swelling atorvastatin [From Lipitor] Adverse Reaction (Verified 10/23/16 17:55) See Comments elevated liver enzymes All Systems PM: A 10-system review of systems was performed and is negative for pertinent findings except as documented above in the HPI. - Constitutional Vitals: Temp Pulse Resp BP Pulse Ox 98.3 F 103 18 144/89 95 10/23/16 17:48 10/23/16 19:17 10/23/16 20:11 10/23/16 19:17 10/23/16 20:11 GENERAL: Adult male, lying in bed, looking fatigued, Alert, HEENT: NC/AT, EOMI, PERRLA, anicteric sclera, mild pallor of conjunctiva, supple, clear nares, moist mucous membranes, RESP: Lungs are clear to auscultation bilaterally, good AE bilaterally, No crackles or wheeze CARDIO: sternotomy scar, normal hearts sounds; S1 and 2, RRR with no murmurs, no JVD, GI: Soft, full, no tenderness, no organomegaly felt, normal bowel sounds heard MUSCULOSKELETAL: grossly normal movements bilaterally, no deformities noted, isolated pitting edema of the right lower extremity NEUROLOGIC: CN 2-12 intact grossly. No gross motor/sensory deficit appreciated, PSYCHIATRY: AAO x 3. Mood is fair, SKIN: ecchymoses on the right posterior hip area with surgical wound Internal Med - H&P Results - Labs CBC & Chem 7: 10/23/16 18:15 10/23/16 18:15 - Diagnostic Studies Chest x-ray Status: image reviewed by me
[2016-10-23] MEDS ORDERED: Acetaminophen 325 MG TABLET PO PRN (21:15)
[2016-10-23] MEDS ORDERED: 0.9 % Sodium Chloride 1,000 ML IVC SCH (21:15)
[2016-10-23] MEDS ORDERED: Naloxone 0.4 MG/ML INJ IVP PRN (21:15)
[2016-10-23] MEDS ORDERED: Albuterol 2.5 MG/3 ML NEBULIZER IH PRN (21:59)
[2016-10-23] MEDS: *HR* OxyCODONE Immed Rel 5 MG TABLET PO PRN (23:28)
[2016-10-23] MEDS: *HR* Heparin 5,000 UNIT/ML VIAL SQ SCH (23:29)
[2016-10-24] MEDS ORDERED: Potassium Chloride Elixir 20 MEQ/15 ML UDC PO ONE (03:31)
[2016-10-24 05:23] LABS: Basophils % 0.1 %; Eosinophils % 0.1 %; Hematocrit 29.7 % (37.5-50.1); Hemoglobin 9.2 g/dL (12.9-16.9); Immature Granulocytes % 0.7 % (0-4); Lymphocytes % 6.6 %; Mean Corpuscular Hemoglobin 27.1 pg (28.0-33.3); Mean Corpuscular Volume 87.4 fL (83.0-100.0); Mean Platelet Volume 10.3 fL (9.4-12.4); Monocytes # 0.4 K/mcL (0.0-1.3); Neutrophils # 13.2 K/mcL (1.6-8.9); Platelet Count 224 K/mcL (140-400); Red Cell Distribution Width 14.5 % (11.5-14.5); Segmented Neutrophils % 89.5 %
[2016-10-24 05:24] LABS: BUN/Creatinine Ratio 18 (6-26); Blood Urea Nitrogen 11 mg/dL (8-26); Carbon Dioxide 35 mEq/L (19-29); Chloride 101 mEq/L (98-109); Glucose 183 mg/dL (70-99); Osmolality,Calculated 290 (280-300); Potassium 4.6 mEq/L (3.5-4.5); Sodium 138 mEq/L (136-145); eGFR For African Americans > 60 (> 60); eGFR For Non-African Americans > 60 (> 60)
[2016-10-24] MEDS: Aspirin 81 MG TAB.CHEW PO SCH (08:34)
[2016-10-24] MEDS: Levofloxacin 750 MG/150 ML 750 MG/150 ML BAG IVPB SCH (08:34)
[2016-10-24] MEDS: *HR* Heparin 5,000 UNIT/ML VIAL SQ SCH ×2 (08:34→16:33)
[2016-10-24] MEDS ORDERED: (Roflumilast [Daliresp] 500 MCG) PO SCH (09:00)
--- NOTE | 2016-10-24 15:11 | Electrocardiograph Report ---
[address] [address] Test Date: 2016-10-23 Pat Name: Sandro Billings Department: 105 Room: 2A Gender: M Senior C Developer: : [id number] Requested By: Rafael Lewis Order Number: [id number] Reading MD: Tavares Mao MD Measurements Intervals [place] Rate: 107 P: 79 AR: 173 QRS: 5 QRSD: 90 T: 59 QT: 332 QTc: 394 Interpretive Statements SINUS TACHYCARDIA WITH OCCASIONAL SUPRAVENTRICULAR PREMATURE COMPLEXES Electronically Signed On 10-24-2016 15:09:46 EDT by Tavares Mao MD
[2016-10-24] MEDS: Ipratropium/Albuterol Neb 3 ML IH SCH ×3 (15:34→21:10)
--- NOTE | 2016-10-24 19:19 | Internal Med Progress Note ---
Date of Encounter: 10/24/16 Time of Encounter: 19:13 - Assessment and plan (1) Acute on chronic respiratory failure with hypoxia Current Visit: No Status: Acute Assessment and plan: Patient uses 4 L of oxygen at home due to severe emphysema. Patient reports worsening of shortness of breath when he got home yesterday. He admits not having air-conditioner at home and that affected his breathing. Chest x-ray showed possible right lower lobe consolidation versus atelectasis. CT chest showed no acute process, severe emphysematous changes, several small bilateral pulmonary noted the change from 2013. Acute onset of shortness of breath likely secondary to environmental factors. He is back to baseline now. Continue nebulizations, Mucinex. Oxygen supplementation. I advised patient to be discharged to inpatient rehabilitation as recommended per PT yesterday. He agreed. director learning services consulted. (2) Anemia Current Visit: No Status: Chronic Assessment and plan: History of acute anemia postsurgery. Hemoglobin today is 9.2. No bleeding. Continue to monitor. No need for transfusion at this time. Qualifiers: Anemia type: other cause Other causes of anemia: acute posthemorrhagic Qualified Code(s): D62 - Acute posthemorrhagic anemia (3) COPD (chronic obstructive pulmonary disease) Current Visit: No Status: Acute Assessment and plan: Plan as above. Qualifiers: COPD type: COPD with acute exacerbation Qualified Code(s): J44.1 - Chronic obstructive pulmonary disease with (acute) exacerbation (4) Coronary artery disease Current Visit: No Status: Chronic Assessment and plan: Stable. Continue home medication. Qualifiers: Coronary Disease-Associated Artery/Lesion type: unspecified vessel or lesion type [place] vs. transplanted heart: [place] heart Associated angina: angina presence unspecified Qualified Code(s): I25.10 - Atherosclerotic heart disease of [place] coronary artery without angina pectoris (5) Hypertension Current Visit: Yes Status: Chronic Assessment and plan: Close monitor. Qualifiers: Hypertension type: essential hypertension Qualified Code(s): I10 - Essential (primary) hypertension (6) Pneumonia Current Visit: Yes Status: Ruled-out Assessment and plan: CT chest showed no acute process. Qualifiers: Pneumonia type: due to unspecified organism Laterality: right Lung location: lower lobe of lung Qualified Code(s): J18.1 - Lobar pneumonia, unspecified organism - Subjective Interval history: Patient reports improved shortness of breath. - Constitutional Vitals: Temp Pulse Resp BP Pulse Ox 98.3 F 98 17 109/66 97 10/24/16 19:08 10/24/16 19:08 10/24/16 19:08 10/24/16 19:08 10/24/16 19:08 General appearance: Present: cooperative, pleasant, no acute distress, answers questions appropriately - Respiratory Respiratory exam: Present: decreased breath sounds. Absent: wheezes - Cardiovascular Cardiovascular exam: Present: RRR - GI/Abdominal GI/Abdominal exam: Present: normal bowel sounds, soft. Absent: distended, tenderness - Extremities Exam Extremities exam: Absent: pedal edema - Back Exam Back exam: Absent: CVA tenderness (L), CVA tenderness (R) - Neurological Exam Neurological exam: Present: alert, oriented X3, no focal deficits, strengths equal and symetr throughout. Absent: facial droop, speech deficit - Skin Skin exam: Absent: rash Internal Medicine: Result - Labs CBC & Chem 7: 10/24/16 04:36 10/24/16 04:36 Labs: Short CBC 10/24/16 Range/Units 04:36 WBC 14.7 H (4.3-11.1) K/mcL Hgb 9.2 L (12.9-16.9) g/dL Hct 29.7 L (37.5-50.1) % Plt Count 224 (140-400) K/mcL Neutrophils # 13.2 H (1.6-8.9) K/mcL BMP 10/24/16 04:36 Sodium 138 Potassium 4.6 H D Chloride 101 Carbon Dioxide 35 H BUN 11 Creatinine 0.61 L Glucose 183 H Calcium 9.0 - Impressions Impressions Chest CT 10/24/16 13:00 IMPRESSION: 1. No acute process in the chest. 2. Severe emphysematous changes. 3. Several small bilateral pulmonary nodules unchanged from 2014. Given the long-term stability these are considered benign and require no follow-up. 4. Coronary artery atherosclerotic vascular disease status post CABG. D/ / Jona Bernal MD / Jona Bernal MD Interpreting Provider: Jona Bernal MD Consult Discharge Plan - Plan Referrals: Romel Fowler MD [Primary Care Provider] - (web request sent on 10/24/16 )
[2016-10-25] MEDS: Ipratropium/Albuterol Neb 3 ML IH SCH ×5 (00:35→15:18)
[2016-10-25] MEDS: *HR* Heparin 5,000 UNIT/ML VIAL SQ SCH ×3 (01:10→16:35)
[2016-10-25] MEDS: *HR* OxyCODONE Immed Rel 5 MG TABLET PO PRN (01:16)
[2016-10-25] MEDS: Levofloxacin 750 MG/150 ML 750 MG/150 ML BAG IVPB SCH (08:52)
[2016-10-25] MEDS: Aspirin 81 MG TAB.CHEW PO SCH (08:53)
[2016-10-25 11:15] VITALS: BP 116/71
[2016-10-25 12:02] LABS: Basophils % 0.3 %; Eosinophils # 0.5 K/mcL (0.0-0.6); Eosinophils % 3.2 %; Immature Granulocytes % 0.8 % (0-4); Lymphocytes % 13.2 %; Mean Corpuscular Hemoglobin 28.2 pg (28.0-33.3); Mean Corpuscular Volume 90.9 fL (83.0-100.0); Mean Platelet Volume 10.1 fL (9.4-12.4); Monocytes # 1.3 K/mcL (0.0-1.3); Monocytes % 8.8 %; Neutrophils # 11.1 K/mcL (1.6-8.9); Nucleated Red Blood Cells 0.1 /100 WBC (0); Platelet Count 247 K/mcL (140-400); Red Blood Count 3.19 M/mcL (4.19-5.50); Red Cell Distribution Width 14.6 % (11.5-14.5); Segmented Neutrophils % 73.7 %
[2016-10-25 12:12] LABS: BUN/Creatinine Ratio 24 (6-26); Blood Urea Nitrogen 15 mg/dL (8-26); Calcium 8.5 mg/dL (8.6-10.8); Carbon Dioxide 33 mEq/L (19-29); Chloride 100 mEq/L (98-109); Glucose 98 mg/dL (70-99); Osmolality,Calculated 287 (280-300); Sodium 138 mEq/L (136-145); eGFR For African Americans > 60 (> 60); eGFR For Non-African Americans > 60 (> 60)
--- NOTE | 2016-10-25 15:44 | Discharge Summary ---
Date of Encounter: 10/25/16 Time of Encounter: 15:40 - Discharge Diagnosis (1) Acute on chronic respiratory failure with hypoxia Priority: Primary Status: Acute (2) COPD (chronic obstructive pulmonary disease) Priority: Primary Status: Chronic Qualifiers: COPD type: COPD with acute exacerbation Qualified Code(s): J44.1 - Chronic obstructive pulmonary disease with (acute) exacerbation (3) Coronary artery disease Priority: Secondary Status: Chronic Qualifiers: Coronary Disease-Associated Artery/Lesion type: unspecified vessel or lesion type [place] vs. transplanted heart: [place] heart Associated angina: angina presence unspecified Qualified Code(s): I25.10 - Atherosclerotic heart disease of [place] coronary artery without angina pectoris (4) Hypertension Priority: Secondary Status: Chronic Qualifiers: Hypertension type: essential hypertension Qualified Code(s): I10 - Essential (primary) hypertension (5) Pneumonia Priority: Primary Status: Ruled-out Qualifiers: Pneumonia type: due to unspecified organism Laterality: right Lung location: lower lobe of lung Qualified Code(s): J18.1 - Lobar pneumonia, unspecified organism (6) Anemia Priority: Secondary Status: Chronic Comments: post-op anemia. iron supplementation. Qualifiers: Anemia type: other cause Other causes of anemia: acute posthemorrhagic Qualified Code(s): D62 - Acute posthemorrhagic anemia (7) CHF (congestive heart failure) Priority: Secondary Status: Chronic Comments: not in acute exacerbation. Qualifiers: Congestive heart failure type: unspecified congestive heart failure type Congestive heart failure chronicity: chronic Qualified Code(s): I50.9 - Heart failure, unspecified - Discharge Medications Prescriptions: Ipratropium/Albuterol Neb [Duoneb] 3 ml IH [id number] 30 Days Albuterol Neb [Proventil Neb] 2.5 mg IH [id number] PRN 30 Days PRN Reason: Shortness Of Breath/Wheezing Doxycycline 100 mg PO BID #10 capsule Ferrous Sulfate 325 mg PO BIDWM #60 tablet GuaiFENesin ER [Mucinex] 1,200 mg PO BID #20 Nebulizer [Aeroeclipse] 1 each AD #1 each Oxygen 1 each .ROUTE AD #1 each Home Medications: Albuterol Sulfate [Albuterol Inhaler] 2 puff IH Q4HR PRN 03/14/16 [History] Aspirin 81 mg PO DAILY 03/14/16 [History] EPINEPHrine [Epipen] 0.3 mg IM ONCE PRN 03/14/16 [History] Ergocalciferol (VITAMIN D2) [Vitamin D2] 50,000 unit PO MO 03/14/16 [History] Levothyroxine [Synthroid] 50 mcg PO 0630 03/14/16 [History] Metoprolol [Lopressor] 50 mg PO BID 03/14/16 [History] Roflumilast [Daliresp] 500 mcg PO DAILY 03/14/16 [History] Sertraline [Zoloft] 50 mg PO DAILY 03/14/16 [History] Simvastatin [Zocor] 40 mg PO HS 03/14/16 [History] Aspirin Enteric Coated [Aspirin EC] 325 mg PO BID #20 tablet. 10/17/16 [Rx] Omeprazole [PriLOSEC] 20 mg PO DAILY PRN 10/17/16 [History] OxyCODONE Immed Rel [Roxicodone 5 MG] 5 mg PO Q4HR PRN #24 tablet 10/17/16 [Rx] Albuterol Neb [Proventil Neb] 2.5 mg IH [id number] PRN 30 Days 10/25/16 [Rx] Doxycycline 100 mg PO BID #10 capsule 10/25/16 [Rx] Ferrous Sulfate 325 mg PO BIDWM #60 tablet 10/25/16 [Rx] GuaiFENesin ER [Mucinex] 1,200 mg PO BID #20 10/25/16 [Rx] Ipratropium/Albuterol Neb [Duoneb] 3 ml IH [id number] 30 Days 10/25/16 [Rx] Lisinopril [Zestril] 2.5 mg PO DAILY #30 tablet 10/25/16 [Rx] Nebulizer [Aeroeclipse] 1 each MC AD #1 each 10/25/16 [Rx] Oxygen 1 each .ROUTE AD #1 each 10/25/16 [Rx] Allergies/Adverse Reactions: Allergies naproxen [From Naprosyn] Allergy (Verified 10/23/16 17:55) See Comments swelling and breathing difficulty Penicillins [PCN] Allergy (Verified 10/23/16 17:55) See Comments swelling Trimethobenzamide Allergy (Verified 10/23/16 17:55) See Comments swelling atorvastatin [From Lipitor] Adverse Reaction (Verified 10/23/16 17:55) See Comments elevated liver enzymes Procedures/tests Complete & Pending: Procedures Performed prior 72 hours Category Date Time Status CT chest wo con [CT] Routine Cat Scan 10/24/16 13:00 Completed Date of admission: 10/23/16 23:32 Primary care physician: Romel Fowler MD - Patient Status Disposition: Home Health Service Condition: Good Functional capacity at discharge: uses cane/walker Overall status at discharge: patient is progressing back to baseline - Discharge Instructions Follow Up With: Romel Fowler MD [Primary Care Provider] - (web request sent on 10/24/16 ) - Diet and Activity Activity: as per physical therapy, wear oxygen at all times (4L ) Diet: low fat, low cholesterol Interval History: patient denies any shortness of breath. he has productive cough of brownish sputum which is chronic. Hospital course: Mr. Billings is a 66 year old male with past medical history of advanced COPD with severe emphysema on oxygen at night-time, HTN, unknown type of heart failure, severe OA and CAD s/p CABG who presents with shortness of breath. He underwent right total hip replacement by dr Carr in October 17 and his hospital course was complicated by right-sided PNA (CXR 10/19 showed right-base consolidation). He received 5 days of levaquin and cefpodoxime and sent home on 10/24 after declining inpatient rehab. Patient reports worsening of shortness of breath when he got home yesterday. He admits not having air-conditioner at home and that affected his breathing. Chest x-ray showed possible right lower lobe consolidation versus atelectasis. CT chest showed no acute process, severe emphysematous changes, and several small bilateral pulmonary unchanged from 2013. He received nebulizations and empiric antibiotics with clinical resolution of his shortness of breath. He was back to his baseline. PLAN: Home oxygen was set up. patient prescribed a nebulizer and recommended to get nebulizations every 4 hours while awake. doxycycline and mucinex. repeat H&H in 1 week. ferrous sulfate bid. - Time Spent with Patient Total time spent providing and/or coordinating discharge services: - Constitutional Vitals: Temp Pulse Resp BP Pulse Ox 97.6 F 87 17 116/71 99 10/25/16 11:09 10/25/16 11:09 10/25/16 11:24 10/25/16 11:24 10/25/16 11:24 General appearance: Present: cooperative, A&O X 3, pleasant, no acute distress, answers questions appropriately - Neck Neck exam general surgery: Present: supple, trachea midline. Absent: lymphadenopathy - Respiratory Respiratory exam: Present: decreased breath sounds. Absent: wheezes - Cardiovascular Cardiovascular exam: Present: RRR - GI/Abdominal GI/Abdominal exam: Present: normal bowel sounds, soft. Absent: distended, tenderness - Extremities Exam Extremities exam: Present: pedal edema (right leg swelling) - Back Exam Back exam: Absent: CVA tenderness (L), CVA tenderness (R) - Neurological Exam Neurological exam: Present: alert, oriented X3, no focal deficits, strengths equal and symetr throughout. Absent: facial droop, speech deficit - Skin Skin exam: Absent: intact (there are bruises on left popliteal area that are already fading and decreas)
--- NOTE | 2016-10-25 18:00 | Physician Discharge Referral ---
Home Health/Hosp Referral Info Transfer to: Home Health Attending Provider: john Provider in Charge Post Discharge: PCP - Diagnosis (1) Acute on chronic respiratory failure with hypoxia Status: Acute (2) Anemia Status: Chronic (3) COPD (chronic obstructive pulmonary disease) Status: Acute (4) Coronary artery disease Status: Chronic (5) Hypertension Status: Chronic (6) Pneumonia Status: Ruled-out - Respiratory Orders Oxygen / L per min (4L NC) Smoking Cessation: Smoking cessation has been advised. For more information, call the [email or web address] Quit Line at [phone]. - Diet/Nutrition Diet/Nutrition Orders: Cardiac - Activity Activity Orders: Walker - Services Needed Following services are medically necessary services: Physical Therapy, Occupational Therapy Other Treatments: cbc on 10/29/16 - Transfer Medications Prescriptions: Ipratropium/Albuterol Neb [Duoneb] 3 ml IH [id number] 30 Days Albuterol Neb [Proventil Neb] 2.5 mg IH [id number] PRN 30 Days PRN Reason: Shortness Of Breath/Wheezing Doxycycline 100 mg PO BID #10 capsule GuaiFENesin ER [Mucinex] 1,200 mg PO BID #20 Nebulizer [Aeroeclipse] 1 each MC AD #1 each Oxygen 1 each .ROUTE AD #1 each Home Medications: Albuterol Sulfate [Albuterol Inhaler] 2 puff IH Q4HR PRN 03/14/16 [History] Aspirin 81 mg PO DAILY 03/14/16 [History] EPINEPHrine [Epipen] 0.3 mg IM ONCE PRN 03/14/16 [History] Ergocalciferol (VITAMIN D2) [Vitamin D2] 50,000 unit PO MO 03/14/16 [History] Levothyroxine [Synthroid] 50 mcg PO 0630 03/14/16 [History] Metoprolol [Lopressor] 50 mg PO BID 03/14/16 [History] Roflumilast [Daliresp] 500 mcg PO DAILY 03/14/16 [History] Sertraline [Zoloft] 50 mg PO DAILY 03/14/16 [History] Simvastatin [Zocor] 40 mg PO HS 03/14/16 [History] Aspirin Enteric Coated [Aspirin EC] 325 mg PO BID #20 tablet. 10/17/16 [Rx] Omeprazole [PriLOSEC] 20 mg PO DAILY PRN 10/17/16 [History] OxyCODONE Immed Rel [Roxicodone 5 MG] 5 mg PO Q4HR PRN #24 tablet 10/17/16 [Rx] Albuterol Neb [Proventil Neb] 2.5 mg IH [id number] PRN 30 Days 10/25/16 [Rx] Doxycycline 100 mg PO BID #10 capsule 10/25/16 [Rx] GuaiFENesin ER [Mucinex] 1,200 mg PO BID #20 10/25/16 [Rx] Ipratropium/Albuterol Neb [Duoneb] 3 ml IH [id number] 30 Days 10/25/16 [Rx] Lisinopril [Zestril] 2.5 mg PO DAILY #30 tablet 10/25/16 [Rx] Nebulizer [Aeroeclipse] 1 each MC AD #1 each 10/25/16 [Rx] Oxygen 1 each .ROUTE AD #1 each 10/25/16 [Rx] Allergies/Adverse Reactions: Allergies naproxen [From Naprosyn] Allergy (Verified 10/23/16 17:55) See Comments swelling and breathing difficulty Penicillins [PCN] Allergy (Verified 10/23/16 17:55) See Comments swelling Trimethobenzamide Allergy (Verified 10/23/16 17:55) See Comments swelling atorvastatin [From Lipitor] Adverse Reaction (Verified 10/23/16 17:55) See Comments elevated liver enzymes Certification: Further, I certify that my clinical findings support that this patient is homebound (i.e. absences from home require considerable and taxing effort and are for medical reasons or christian services or infrequently or short duration when for other reasons) because: Homebound Reason: Patient requires assistance of a person or device to safely leave home, Leaving home requires considerable and taxing effort due to condition, Severity of cardiac or pulmonary status limits activity tolerance Attestation: My signature below is to certify that this patient is under my care and that I, or nurse practitioner, or a physician's hearing aid assistant working with me, has a face-to -face encounter with this patient.
== END 2016-10-25 18:35 | disposition home health service (06) | DRG 871 ==
LOC: EMEROO 17:46 → 2ANU 17:46 → SUATTDRO 23:32
PROVIDERS: ADMIT Internal Medicine; ATTEND Internal Medicine